=== PATIENT | female | born 1940 | race Caucasian/White ===

== ENCOUNTER 2017-01-31 01:38 | Observation (INO) ==
--- NOTE | 2017-01-31 00:39 | Internal Med History&Physical ---
Date of Encounter: 01/31/17 Time of Encounter: 00:37 Assessment and Plan (1) Atrial fibrillation with RVR Current visit: No Status: Acute trial PO cardizem 30mg QID- hold for HR< 60 (has hx of low HR), continue xarelto , monitor overnight, ambulate and if symptoms better, may return home, OOB, ambulate, orthostats while on meds to avoid hypotension/falls (2) History of hypertension Current visit: No Status: Chronic monitor on rate agent. ACEI with holding parameters if BP low (3) Anxiety Current visit: No Status: Chronic Chronic problem. continue med Internal Medicine - H&P: HPI Chief complaint: Palpitations History of present illness: Ms. Ireland is a 76 year old female with a hx of AFib on xarelto who symptoms with symptomatic AFib rvr today. She developed palpitations today and called her PCP and was advised to take extra cardizem pills x 2 but with persistent rvr. She presented to the local ED where she was given 6 adenosine and 8 mg IV cardizem with rate control in 60s. She did not wish to be admitted to his local hospital and requested transfer to [place] for observation. No worsening or improving factors noted on review. She has a hx of low HR and therefore is on prn dilt Past Med Surg Social Fam HX - Past Medical History Medical history: atrial fibrillation, coronary artery disease Psychiatric history: anxiety - Past Surgical History Surgical History: appendectomy, coronary bypass (CABG), knee replacement, thyroidectomy - Social History Smoking Status: Never smoker Smokeless Tobacco Status: No Alcohol use: none Drug use: none - Family History Mother Living Status: Hx Family Cardiac Disorders: No Hx Family Respiratory Disorders: No Hx Family Cancer: Yes (BREAST) Hx Family GI Disorders: No Hx Family Endocrine Disorder: No Hx Family Neuromuscular Disorders: No Hx Family Neurologic Disorders: No Hx Family HEENT Disorders: No Hx Family Autoimmune Disorders: No Father Living Status: Hx Family Cardiac Disorders: Yes Hx Family Respiratory Disorders: No Hx Family Cancer: No Hx Family GI Disorders: No Hx Family Endocrine Disorder: No Hx Family Neuromuscular Disorders: No Hx Family Neurologic Disorders: No Hx Family HEENT Disorders: No Hx Family Autoimmune Disorders: No Internal Medicine - H&P: Meds ALPRAZolam [Xanax 0.5 MG Tablet] 0.25 mg PO HS 07/14/15 [History] Lisinopril [Zestril] 20 mg PO QAM 07/14/15 [History] Nitroglycerin [Nitrostat] 0.4 mg SL AD PRN 07/14/15 [History] Pantoprazole Sodium [Protonix] 40 mg PO QAM 07/14/15 [History] Rivaroxaban [Xarelto] 20 mg PO QPM 07/14/15 [History] Cholecalciferol (D-3) [Vitamin D] 1,000 unit PO DAILY 11/07/16 [History] Diltiazem [Cardizem] 30 mg PO AD PRN 01/30/17 [History] Allergies doxycycline Adverse Reaction (Verified 11/07/16 17:51) See Comments bloody stools All Systems PM: A 10-system review of systems was performed and is negative for pertinent findings except as documented above in the HPI. Review of systems: ROS 14 point review of systems reviewed as best as possible given presentation. Pertinent positive or negative as per HPI or otherwise reviewed as negative - Constitutional Exam: General - AAO x 3 Psych - Appropriate affect/speech. No agitation Eyes - DEVANTE. Eye lids intact. No scleral icterus ENT - Oral mucosa pink, dentition intact. External ear clear/dry/intact. No thyromegaly Lymphatics - No cervical/inguinal lympadenopathy Neuro - No gross peripheral or central neuro deficits with intact CN 2-12 exam Heart - Irregular. S1 and S2 present. No added HS/murmurs appreciated. No elevated JVD appreciated. No calf swellings/erythema Lung - Adequate air entry b/l, No crackes/wheezes appreciated GI - Soft, non-tender. No hepatosplenomegaly/ascities. BS+ - No CVA/suprapubic tenderness or palpable bladder distension Skin - Intact. No rash/petechiae/ecchymosis. Warm extremities MSK - Joints with normal ROM. No joint swellings - VTE Reasons for not Prescribing Prophylaxis: Not indicated-Anticoagulated or INR therapeutic
[~2017-01-31 01:38] MED LIST: Acetaminophen 325 MG TABLET PO PRN
[2017-01-31 04:11] LABS: Basophils # 0.1 K/mcL (0.0-0.2); Basophils % 0.9 %; Eosinophils # 0.2 K/mcL (0.0-0.6); Eosinophils % 2.6 %; Hemoglobin 10.5 g/dL (11.5-15.4); Immature Granulocytes % 0.4 % (0-4); Lymphocytes # 2.4 K/mcL (0.6-4.6); Mean Corpuscular Hemoglobin 25.2 pg (28.0-33.3); Mean Corpuscular Volume 83.9 fL (83.0-100.0); Monocytes # 0.4 K/mcL (0.0-1.3); Monocytes % 7.7 %; Neutrophils # 2.7 K/mcL (1.6-8.9); Platelet Count 337 K/mcL (140-400); Red Blood Count 4.17 M/mcL (3.82-4.97); Red Cell Distribution Width 15.9 % (11.5-14.5); Segmented Neutrophils % 46.4 %
[2017-01-31 04:21] LABS: BUN/Creatinine Ratio 13 (6-26); Blood Urea Nitrogen 10 mg/dL (7-20); Carbon Dioxide 27 mEq/L (19-29); Chloride 108 mEq/L (98-109); Glucose 96 mg/dL (70-99); Magnesium 2.1 mg/dL (1.6-2.6); Osmolality,Calculated 291 (280-300); Potassium 4.1 mEq/L (3.5-4.5); Sodium 141 mEq/L (136-145); eGFR For African Americans > 60 (> 60); eGFR For Non-African Americans > 60 (> 60)
--- NOTE | 2017-01-31 08:46 | Cardiology Consult Note ---
Date of Encounter: 01/31/17 Time of Encounter: 08:45 Assessment and Plan (1) Atrial fibrillation with RVR Current Visit: No Status: Acute Appears that cardizem CD was ordered for her today at 0900. Monitor during the day to make sure her HR tolerates it. Discussed antiarrhythmic options including their side effects and need for hospitalization monitoring. A/R/B of sotalol and amiodarone discussed. She does not want to remain in the hospital and prefers to start amiodarone understanding the possible side effects. Continue xarelto for chronic anticoagulation. (2) Palpitations Current Visit: No Status: Acute Discussion w patient/family: The assessment and plan as outlined above was discussed with the patient and/or family members who expressed understanding and agreement. All questions were answered. Thank you for involving us in the care of your patient. Please call with any questions. History of Present Illness Consult date: 01/31/17 Consult reason: AF RVR History of present illness: Ms. Ireland is a 76 year old female with history of AF RVR maintained on xarelto and cardizem prn secondary to history of bradycardia presenting with AF RVR improved with IV adenosine and IV cardizem. She had severe palpitations yesterday that were not improved with cardizem. They started at rest and persisted until receiving IV meds in the ED. No previous discussion regarding antiarrhythmics. She thinks she was on metoprolol a long time ago but does not recall the specifics. Past Med Surg Social Fam HX - Past Medical History Medical history: atrial fibrillation, coronary artery disease Psychiatric history: anxiety - Past Surgical History Surgical History: appendectomy, coronary bypass (CABG), knee replacement, thyroidectomy - Social History Smoking Status: Never smoker Smokeless Tobacco Status: No Alcohol use: none Drug use: none - Family History Mother Living Status: Hx Family Cardiac Disorders: No Hx Family Respiratory Disorders: No Hx Family Cancer: Yes (BREAST) Hx Family GI Disorders: No Hx Family Endocrine Disorder: No Hx Family Neuromuscular Disorders: No Hx Family Neurologic Disorders: No Hx Family HEENT Disorders: No Hx Family Autoimmune Disorders: No Father Living Status: Hx Family Cardiac Disorders: Yes Hx Family Respiratory Disorders: No Hx Family Cancer: No Hx Family GI Disorders: No Hx Family Endocrine Disorder: No Hx Family Neuromuscular Disorders: No Hx Family Neurologic Disorders: No Hx Family HEENT Disorders: No Hx Family Autoimmune Disorders: No Medications and Allergies ALPRAZolam [Xanax 0.5 MG Tablet] 0.25 mg PO HS 07/14/15 [History] Lisinopril [Zestril] 20 mg PO QAM 07/14/15 [History] Nitroglycerin [Nitrostat] 0.4 mg SL AD PRN 07/14/15 [History] Pantoprazole Sodium [Protonix] 40 mg PO QAM 07/14/15 [History] Rivaroxaban [Xarelto] 20 mg PO QPM 07/14/15 [History] Cholecalciferol (D-3) [Vitamin D] 1,000 unit PO DAILY 11/07/16 [History] Diltiazem [Cardizem] 30 mg PO AD PRN 01/30/17 [History] Allergies doxycycline Adverse Reaction (Verified 11/07/16 17:51) See Comments bloody stools All Systems Review: A 10-system review of systems was performed and is negative for pertinent findings except as documented above in the HPI. - Constitutional Constitutional: no chills, no fever(s) - EENT Eyes: no blurred vision, no loss of vision - Cardiovascular Cardiovascular: no chest pain at rest, no chest pain with exertion - Respiratory Respiratory: no hemoptysis, no wheezing - Gastrointestinal Gastrointestinal: no hematemesis, no hematochezia - Genitourinary Genitourinary: no dysuria, no hematuria - Musculoskeletal Musculoskeletal: no arthralgias, no myalgias - Integumentary Integumentary: no rash, no unusual bruising - Neurological Neurological: no focal weakness, no syncope - Psychiatric Psychiatric: no anxiety, no depression - Hematological/Lymphatic Hematologic/Lymphatic: no easy bleeding, no easy bruising Physical Examination Vital Signs, Last 4 Hours Temp Pulse Resp BP Pulse Ox 01/31/17 07:07 97.9 F 59 16 123/77 96 General: Conversant HEENT: Atraumatic Neck: No JVD Cardiac: Reg Rate and Rhythm Lungs: Normal Breath Sounds Neuro: Alert and responsive Abdomen: Soft Skin: No rashes noted on visualized skin Musculoskeletal: No Chest Wall Tenderness Extremities: No Edema Results 01/31/17 03:44 01/31/17 03:44 Lab Results 01/31/17 01/31/17 03:44 03:44 WBC 5.7 Hgb 10.5 L Hct 35.0 L Plt Count 337 Sodium 141 Potassium 4.1 Chloride 108 Carbon Dioxide 27 BUN 10 Creatinine 0.77 Glucose 96 Calcium 9.0 Magnesium 2.1 - EKG Interpretation EKG results cardiology: personally reviewed Consult Discharge Plan - Plan Referrals: Yovani Ruiz DO [Primary Care Provider] -
[2017-01-31] MEDS ORDERED: Cholecalciferol (D-3) 1,000 UNIT TABLET PO SCH (09:00)
[2017-01-31] MEDS ORDERED: Diltiazem CD (24hr) 120 MG CAPSULE PO SCH (09:00)
[2017-01-31] MEDS ORDERED: Lisinopril 20 MG TABLET PO SCH (10:00)
[2017-01-31 11:19] VITALS: BP 153/79
[2017-01-31] MEDS ORDERED: *HR* Amiodarone 200 MG TABLET PO ONE (11:37)
[2017-01-31] MEDS ORDERED: *HR* Digoxin 0.5 MG/2 ML AMPUL IVP SCH (12:00)
--- NOTE | 2017-01-31 14:38 | Event Note ---
Date of Encounter: 01/31/17 Time of Encounter: 14:00 A review by [facility] and a member of the utilization review committee has been completed, and I (Dr. Fuller) agree that the status is to be changed to observation using a condition code 44.
--- NOTE | 2017-01-31 15:31 | Discharge Summary ---
Date of Encounter: 01/31/17 Time of Encounter: 10:00 - Discharge Diagnosis (1) Atrial fibrillation with RVR Priority: Primary Status: Acute (2) History of hypertension Priority: Secondary Status: Chronic (3) DVT prophylaxis Priority: Secondary Status: Acute - Discharge Medications Prescriptions: Amiodarone [Cordarone] 200 mg PO DAILY #30 tab Home Medications: ALPRAZolam [Xanax 0.5 MG Tablet] 0.25 mg PO HS 07/14/15 [History] Lisinopril [Zestril] 20 mg PO QAM 07/14/15 [History] Nitroglycerin [Nitrostat] 0.4 mg SL AD PRN 07/14/15 [History] Pantoprazole Sodium [Protonix] 40 mg PO QAM 07/14/15 [History] Rivaroxaban [Xarelto] 20 mg PO QPM 07/14/15 [History] Cholecalciferol (D-3) [Vitamin D] 1,000 unit PO DAILY 11/07/16 [History] Diltiazem [Cardizem] 30 mg PO AD PRN 01/30/17 [History] Amiodarone [Cordarone] 200 mg PO DAILY #30 tab 01/31/17 [Rx] Allergies/Adverse Reactions: Allergies doxycycline Adverse Reaction (Verified 11/07/16 17:51) See Comments bloody stools Procedures/tests Complete & Pending: Procedures Performed prior 72 hours Category Date Time Status ECG 12 lead ECG [ECG] AM 0600 Y 01/31/17 06:00 Ordered - Notes to Outpatient Provider 1. Add amiodarone 200mg po daily to pt's medication list per cardiology recommendation. Date of admission: 01/31/17 00:43 Primary care physician: Yovani Ruiz DO Discharging clinician: Hallie Fuller Anticipated date of discharge: 01/31/17 - Patient Status Disposition: Home, Self-Care Condition: Good Functional capacity at discharge: independent ambulation Overall status at discharge: patient is back to baseline - Discharge Instructions Follow Up With: Yovani Ruiz DO [Primary Care Provider] - - Diet and Activity Activity: increase activity as tolerated Diet: low salt diet Interval History: HPI: Ms. Ireland is a 76 year old female with a hx of AFib on xarelto who symptoms with symptomatic AFib rvr today. She developed palpitations today and called her PCP and was advised to take extra cardizem pills x 2 but with persistent rvr. She presented to the local ED where she was given 6 adenosine and 8 mg IV cardizem with rate control in 60s. She did not wish to be admitted to his local hospital and requested transfer to [place] for observation. No worsening or improving factors noted on review. She has a hx of low HR and therefore is on prn dilt Hospital course: Ms. Ireland is a 76 year old female admitted with A Fib with RVR. Pt has Hx of A Fib on xarelto. The specific reason causing RVR is not clear, pt denies recent infection or stress. Her HR get down to 60s after cardizem drip use. Cardio consult saw pt, add amiodarone to her med list. Pt feels fine after taking first dose of amiodarone. Vitals stable. Pt will discharge home and f/u with her dice table operator Dr Muir as outpatient. I saw pt today and examined her. She is awake, alert, oriented x 3. Vitals stable. Stable to discharge home. - Time Spent with Patient Total time spent providing and/or coordinating discharge services: 25 min. Less than 30 minutes - Constitutional Vitals: Temp Pulse Resp BP Pulse Ox 98.2 F 56 16 153/79 98 01/31/17 11:17 01/31/17 11:17 01/31/17 11:17 01/31/17 11:17 01/31/17 11:17 General appearance: Present: A&O X 3, pleasant, no acute distress, answers questions appropriately - Head Head exam: Present: atraumatic, normocephalic - Eye Eye exam: Present: PERRL, conjuntiva pink, sclera anicteric Pupils: Present: PERRL - Neck Neck exam general surgery: Present: supple, trachea midline. Absent: lymphadenopathy - Respiratory Respiratory exam: Present: CTAB. Absent: accessory muscle use, rales, rhonchi, wheezes - Cardiovascular Cardiovascular exam: Present: irregular rhythm, +S1, +S2. Absent: diastolic murmur, gallop, rubs, systolic murmur - GI/Abdominal GI/Abdominal exam: Present: normal bowel sounds, soft, no peritoneal signs. Absent: distended, tenderness - Extremities Exam Extremities exam: Present: warm, radial pulses palpable and symetrical. Absent : calf tenderness, cyanotic, pedal edema - Neurological Exam Neurological exam: Present: CN II-XII intact, oriented X3, no focal deficits. Absent: pronater drift, facial droop, speech deficit - Skin Skin exam: Present: dry, intact - VTE Reasons for not Prescribing Prophylaxis: Not indicated-Anticoagulated or INR therapeutic
[2017-01-31] MEDS ORDERED: *HR* Rivaroxaban 10 MG TABLET PO SCH (18:00)
[2017-01-31] MEDS ORDERED: ALPRAZolam 0.5 MG TABLET PO SCH (21:00)
[2017-02-01] MEDS ORDERED: *HR* Amiodarone 200 MG TABLET PO SCH (09:00)
== END 2017-01-31 16:30 | disposition home or self-care (01) ==
LOC: 3BNU → SUATTDRO 01:38
PROVIDERS: ADMIT Internal Medicine Hematology & Oncology; ATTEND Internal Medicine

== ENCOUNTER 2017-09-25 18:46 | Observation (INO) ==
[2017-09-25] MEDS ORDERED: Aspirin 81 MG TAB.CHEW PO ONE (18:52)
[2017-09-25 19:32] LABS: Bilirubin,Urine Negative (Negative); Blood,Urine Trace (Negative); Clarity,Urine Clear (Clear); Color,Urine Yellow (Yellow); Glucose,Urine (UA) Normal (Normal); Ketones,Urine Negative (Negative); Leukocyte Esterase,Urine Negative (Negative); Nitrite,Urine Negative (Negative); Protein,Urine 30 mg/dL (Neg-Trace); Specific Gravity,Urine 1.019 (1.010-1.025); Urobilinogen,Urine Normal (Normal)
--- NOTE | 2017-09-25 19:35 | Emergency Department Note ---
Disposition Clinical Impression: Atrial fibrillation with RVR, Elevated troponin Chest pain Qualifiers: Chest pain type: unspecified Qualified Code(s): R07.9 - Chest pain, unspecified Disposition: Admitted As Inpatient Condition: Good Time of Disposition: 21:55 Chest Pain HPI - General Chief Complaint: ED Chest Pain Stated Complaint: Chest pain Time Seen by Provider: 09/25/17 18:52 Source: patient, family Limitations: no limitations Vital Signs Reviewed: Yes Nursing Notes Reviewed: Yes - History of Present Illness HPI Narrative: Patient complaining of a fast heart rate that began around 5 PM this evening. Also chest pain associated with this. States it radiates to her back. Complains it is an ache. Has not taken any medication to help with the pain did try Cardizem twice at home by mouth to help with her A. fib. No relief. Onset was after she picked up a bucket of water. Severity scale (1-10): 7 - Related Data Home Medications Medication Instructions Recorded Confirmed ALPRAZolam [Xanax 0.5 MG Tablet] 0.25 mg PO HS 07/14/15 09/25/17 Lisinopril [Zestril] 20 mg PO QAM 07/14/15 09/25/17 Nitroglycerin [Nitrostat] 0.4 mg SL AD PRN 07/14/15 09/25/17 Pantoprazole Sodium [Protonix] 40 mg PO QAM 07/14/15 09/25/17 Rivaroxaban [Xarelto] 20 mg PO QPM 07/14/15 09/25/17 Cholecalciferol (D-3) [Vitamin D] 1,000 unit PO DAILY 11/07/16 09/25/17 Diltiazem [Cardizem] 30 mg PO AD PRN 01/30/17 09/25/17 Allergies Allergy/AdvReac Type Severity Reaction Status Date / Time doxycycline AdvReac See Verified 11/07/16 17:51 Comments All systems ED: reviewed and negative except as stated. Constitutional: Denies: fever, chills ENT ED: Denies: congestion Cardiovascular: Reports: chest pain, palpitations (Feels like her heart is racing). Denies: syncope Respiratory: Denies: cough, dyspnea, wheezes Gastrointestinal: Denies: abdominal pain, nausea, vomiting, diarrhea, hematemesis, melena, hematochezia Genitourinary: Denies: urgency, dysuria, frequency Musculoskeletal: Reports: back pain (Radiates from her chest). Denies: neck pain Neurological: Denies: headache, weakness Chest Pain PMH - Past Medical History Medical history: Reports: atrial fibrillation, coronary artery disease, hyperlipidemia, hypertension Surgical history: Reports: appendectomy, coronary bypass (CABG), knee replacement, thyroidectomy Psychiatric history: Reports: anxiety COLLARETTE SEPARATOR history: Reports: no COLLARETTE SEPARATOR history - Social History Smoking Status: Never smoker Alcohol use: Reports: none Drug use: Reports: none Physical Exam - General Limitations: no limitations General appearance: alert, in distress (Appears to be in pain) - Head Head exam: atraumatic, normocephalic, normal inspection - Eye Eye exam: Present: normal appearance, PERRL, EOMI. Absent: scleral icterus - ENT ENT exam: normal exam, normal oropharynx, mucous membranes moist - Neck Neck exam: Present: normal inspection, full ROM, trachea midline - Chest Chest inspection: Present: normal inspection, symmetric chest wall rise. Absent : tenderness - Respiratory Respiratory exam: Present: normal lung sounds bilaterally. Absent: respiratory distress - Cardiovascular Cardiovascular exam: Present: tachycardia, normal heart sounds - Abdominal Exam Abdominal exam: Present: soft, Non-Tender. Absent: distention, rigidity, organomegaly - Extremities Exam Extremities exam: Present: normal inspection, full ROM, normal capillary refill. Absent: tenderness, pedal edema - Back Exam Back exam: Present: normal inspection - Neurological Exam Neurological exam: Present: alert, oriented X3 - Psychiatric Psychiatric exam: Present: normal affect, normal mood - Skin Skin exam: Present: warm, dry, intact, normal color. Absent: rash, cyanosis, diaphoresis, erythema Course Course Narrative: Female patient presents emergency department complaining of an irregular heartbeat. States that started around 5 PM today. Patient states that she has had a history of A. fib before. She did try Cardizem pills twice as prescribed by her commercial maintenance technician yvan with no relief of this. She states that she was bending over and picked up a bucket of water whenever she came back to the house she noticed that her heart was racing. Last episode started in March. She reports a chest aching as well as pain in her back and neck. She reports that her heart rate is normally low and she does have a echo scheduled on October 07. She states that she was previously placed on a medication which appears to be a beta mauricio but taken off this due to her slow heart rate. Patient is mentating appropriately. She does appear to have pain at this time. Her lung sounds are clear her heart is tachycardic on exam. Abdomen is soft and nontender. She denies any nausea or vomiting. She refuses pain medication for pain at this time. She has pain radiating into her back we will get a CT angiography patient's chest and abdomen. Cardizem was ordered however was not given because patient converted prior to the administration of the bolus or the starting of the IV drip. Patient states that she does feel like her heart is back and rhythm. We did get a repeat EKG that showed a sinus rhythm consistent with her previous EKG. We will admit patient to the hospitalist. - Consultations Consultation #1: Dr. Graham accepted patient in stable condition. Time: 21:52 Vital Signs Temperature 98.8 F 09/25/17 18:48 Pulse Rate 157 09/25/17 18:48 Respiratory Rate 18 09/25/17 18:48 Blood Pressure 153/96 09/25/17 18:48 O2 Sat by Pulse Oximetry 93 09/25/17 18:48 Temperature 97.7 F 09/26/17 03:00 Pulse Rate 57 09/26/17 03:00 Respiratory Rate 16 09/26/17 03:00 Blood Pressure 152/75 09/26/17 03:00 O2 Sat by Pulse Oximetry 97 09/26/17 03:00 Oxygen Delivery Oxygen Delivery Room Air Chest Pain - Medical Records Medical records reviewed: Yes I reviewed the patient's medical records. - Lab Data Lab results reviewed: Yes I reviewed the patient's lab results. Result diagrams: 09/26/17 04:52 09/25/17 19:38 Lab Results 09/25/17 09/25/17 09/25/17 Range/Units 19:22 19:38 19:38 WBC (4.3-11.1) K/mcL RBC (3.82-4.97) M/mcL Hgb (11.5-15.4) g/dL Hct (35.3-44.9) % MCV (83.0-100.0) fL MCH (28.0-33.3) pg MCHC (31.6-35.5) g/dL RDW (11.5-14.5) % Plt Count (140-400) K/mcL MPV (9.4-12.4) fL Immature Gran % (0-4) % Seg Neutrophils % % Lymphocytes % % Monocytes % % Eosinophils % % Basophils % % Neutrophils # (1.6-8.9) K/mcL Lymphocytes # (0.6-4.6) K/mcL Monocytes # (0.0-1.3) K/mcL Eosinophils # (0.0-0.6) K/mcL Basophils # (0.0-0.2) K/mcL PT 11.5 (9.4-12.1) Seconds INR 1.1 APTT 33.3 (26.0-36.0) Seconds Sodium (136-145) mEq/L Potassium (3.5-5.1) mEq/L Chloride (98-107) mEq/L Carbon Dioxide (23-29) mEq/L BUN (8-23) mg/dL Creatinine (0.60-1.20) mg/dL Est GFR ( Amer) (> 60) Est GFR (Non-Af Amer) (> 60) BUN/Creatinine Ratio (6-26) Glucose (70-105) mg/dL Calculated Osmolality (280-300) Calcium (8.6-10.3) mg/dL Troponin I (< 0.04) ng/mL B-Natriuretic Peptide 307 H (Less than 100) pg/mL Urine Color Yellow (Yellow) Urine Clarity Clear (Clear) Urine pH 6.0 (5.0-8.0) pH Units Ur Specific [place] 1.019 (1.010-1.025) Urine Protein 30 H (Neg-Trace) mg/dL Urine Glucose (UA) Normal (Normal) mg/dL Urine Ketones Negative (Negative) mg/dL Urine Blood Trace H (Negative) Urine Nitrite Negative (Negative) Urine Bilirubin Negative (Negative) Urine Urobilinogen Normal (Normal) mg/dL Ur Leukocyte Esterase Negative (Negative) Urine Microscopic RBC 0-3 (0-3) per hpf Urine Microscopic WBC 0-3 (0-3) per hpf Ur Squamous Epith Cells Few (None-Few) per lpf Urine Bacteria None Seen (None-Few) per hpf Hyaline Casts None Seen (None-Few) per lpf Ur Culture Indicated? NO (NO) 09/25/17 09/25/17 Range/Units 19:38 19:38 WBC 7.5 (4.3-11.1) K/mcL RBC 4.37 (3.82-4.97) M/mcL Hgb 13.0 (11.5-15.4) g/dL Hct 39.7 (35.3-44.9) % MCV 90.8 (83.0-100.0) fL MCH 29.7 (28.0-33.3) pg MCHC 32.7 (31.6-35.5) g/dL RDW 14.1 (11.5-14.5) % Plt Count 292 (140-400) K/mcL MPV 8.9 L (9.4-12.4) fL Immature Gran % 0.3 (0-4) % Seg Neutrophils % 57.3 % Lymphocytes % 34.3 % Monocytes % 5.6 % Eosinophils % 1.6 % Basophils % 0.9 % Neutrophils # 4.3 (1.6-8.9) K/mcL Lymphocytes # 2.6 (0.6-4.6) K/mcL Monocytes # 0.4 (0.0-1.3) K/mcL Eosinophils # 0.1 (0.0-0.6) K/mcL Basophils # 0.1 (0.0-0.2) K/mcL PT (9.4-12.1) Seconds INR APTT (26.0-36.0) Seconds Sodium 140 (136-145) mEq/L Potassium 3.9 (3.5-5.1) mEq/L Chloride 109 H (98-107) mEq/L Carbon Dioxide 22 L (23-29) mEq/L BUN 18 (8-23) mg/dL Creatinine 0.84 (0.60-1.20) mg/dL Est GFR ( Amer) > 60 (> 60) Est GFR (Non-Af Amer) > 60 (> 60) BUN/Creatinine Ratio 21 (6-26) Glucose 114 H (70-105) mg/dL Calculated Osmolality 293 (280-300) Calcium 9.4 (8.6-10.3) mg/dL Troponin I 0.05 H* (< 0.04) ng/mL B-Natriuretic Peptide (Less than 100) pg/mL Urine Color (Yellow) Urine Clarity (Clear) Urine pH (5.0-8.0) pH Units Ur Specific [place] (1.010-1.025) Urine Protein (Neg-Trace) mg/dL Urine Glucose (UA) (Normal) mg/dL Urine Ketones (Negative) mg/dL Urine Blood (Negative) Urine Nitrite (Negative) Urine Bilirubin (Negative) Urine Urobilinogen (Normal) mg/dL Ur Leukocyte Esterase (Negative) Urine Microscopic RBC (0-3) per hpf Urine Microscopic WBC (0-3) per hpf Ur Squamous Epith Cells (None-Few) per lpf Urine Bacteria (None-Few) per hpf Hyaline Casts (None-Few) per lpf Ur Culture Indicated? (NO) - Radiology Data Radiology results reviewed: Yes I reviewed the patient's radiology results. Chest X-Ray 09/25/17 18:52 IMPRESSION: No acute findings D/ / Emiliana Alvares MD / Emiliana Alvares MD Interpreting Provider: Emiliana Alvares MD Abdomen/Pelvis CTA 09/25/17 19:41 IMPRESSION: No evidence of dissection. Ascending thoracic aortic aneurysm measuring up to 3.6 cm. No acute findings in the chest, abdomen, or pelvis. Diverticulosis. No evidence of acute diverticulitis. D/ / Emiliana Alvares MD / Emiliana Alvares MD Interpreting Provider: Emiliana Alvares MD Chest CTA 09/25/17 19:41 IMPRESSION: No evidence of dissection. Ascending thoracic aortic aneurysm measuring up to 3.6 cm. No acute findings in the chest, abdomen, or pelvis. Diverticulosis. No evidence of acute diverticulitis. D/ / Emiliana Alvares MD / Emiliana Alvares MD Interpreting Provider: Emiliana Alvares MD - EKG Data EKG attestation: Yes I reviewed and interpreted this EKG. EKG results narrative: A. fib with RVR at a rate of 154. QRS interval is 119. QT is 300 QTC is 387. There is no significant change from the previous EKG with the exception of V5 has a upward deflection as opposed to previously there is a downward deflection. There is some gross T-wave inversions. Repeat EKG 09/25/2036. Sinus rhythm at a rate of 67. VT interval is 154. QRS duration is 135. QT is 462. QTC is 477. Left bundle branch block. This was on previous EKG dated 01/30/2017. No significant change. With the exception of V5 is now upward deflection. No signs of acute ischemia. Attestation Statement - Attestation Attestation: I examined this patient and my medical decision-making was reviewed with the Resident Physician. I agree with the documented findings, disposition and treatment plan as described except to the extent set forth below. Patient with findings consistent with A. fib with RVR. She has any coagulate with several toe. She has of a history of A. fib. Heart rate in the 150s on arrival. He did order Cardizem bolus and infusion. She subsequently converted to sinus rhythm without are intervention as she did take by mouth Cardizem prior to arrival. Plan to admit for further evaluation and cardiology consultation.
[2017-09-25 19:36] LABS: Bacteria,Urine None Seen per hpf (None-Few); Hyaline Casts,Urine None Seen per lpf (None-Few); RBC,Urine 0-3 per hpf (0-3); Squamous Epithelial Cell,Urine Few per lpf (None-Few); WBC,Urine 0-3 per hpf (0-3)
[2017-09-25] MEDS ORDERED: 0.9 % Sodium Chloride 500 ML IVC ONE (19:37)
[2017-09-25 19:53] LABS: Basophils # 0.1 K/mcL (0.0-0.2); Basophils % 0.9 %; Eosinophils # 0.1 K/mcL (0.0-0.6); Eosinophils % 1.6 %; Hematocrit 39.7 % (35.3-44.9); Immature Granulocytes % 0.3 % (0-4); Lymphocytes # 2.6 K/mcL (0.6-4.6); Lymphocytes % 34.3 %; Mean Corpuscular HGB Conc 32.7 g/dL (31.6-35.5); Mean Corpuscular Hemoglobin 29.7 pg (28.0-33.3); Mean Corpuscular Volume 90.8 fL (83.0-100.0); Mean Platelet Volume 8.9 fL (9.4-12.4); Monocytes # 0.4 K/mcL (0.0-1.3); Monocytes % 5.6 %; Neutrophils # 4.3 K/mcL (1.6-8.9); Platelet Count 292 K/mcL (140-400); Red Blood Count 4.37 M/mcL (3.82-4.97); Red Cell Distribution Width 14.1 % (11.5-14.5); Segmented Neutrophils % 57.3 %
[2017-09-25 19:59] LABS: INR 1.1; Prothrombin Time 11.5 Seconds (9.4-12.1)
[2017-09-25 20:01] LABS: Activated Partial Thrombo Time 33.3 Seconds (26.0-36.0)
[2017-09-25 20:16] LABS: BUN/Creatinine Ratio 21 (6-26); Blood Urea Nitrogen 18 mg/dL (8-23); Calcium 9.4 mg/dL (8.6-10.3); Carbon Dioxide 22 mEq/L (23-29); Chloride 109 mEq/L (98-107); Glucose 114 mg/dL (70-105); Osmolality,Calculated 293 (280-300); Potassium 3.9 mEq/L (3.5-5.1); Sodium 140 mEq/L (136-145); eGFR For African Americans > 60 (> 60); eGFR For Non-African Americans > 60 (> 60)
[2017-09-25 20:19] LABS: Troponin I 0.05 ng/mL (< 0.04)
[2017-09-25] MEDS ORDERED: Naloxone 0.4 MG/ML INJ IVP PRN ×2 (22:34→22:36)
[2017-09-25] MEDS ORDERED: traMADol 50 MG TABLET PO PRN (22:36)
[2017-09-25] MEDS ORDERED: Acetaminophen 325 MG TABLET PO PRN (22:36)
[2017-09-25] MEDS ORDERED: Nitroglycerin 0.4 MG TAB.SUBL SL PRN (22:37)
--- NOTE | 2017-09-25 22:52 | Internal Med History&Physical ---
Date of Encounter: 09/25/17 Time of Encounter: 22:48 Assessment and Plan (1) Atrial fibrillation with RVR Current visit: Yes Status: Acute Patient when arrived to emergency room with a atrial fibrillation converted on her own remains in sinus rhythm with an Lopressor 25 mg twice a day cartilages consult and (2) Chest pain Current visit: Yes Status: Acute Qualifiers: Chest pain type: unspecified Qualified Code(s): R07.9 - Chest pain, unspecified (3) Elevated troponin Current visit: Yes Status: Acute Patient had episode of chest pain with mildly elevated troponin likely due to atrial fibrillation with RVR will trend troponin (4) History of hypertension Current visit: No Status: Chronic Chronic and well controlled Internal Medicine - H&P: HPI Chief complaint: chest pain and atrial fib Admitted From: Emergency Dept Plans for Post Hospital Care: Home History of present illness: Ms. Ireland is a 76 year old female Patient with history of paroxysmal atrial fibrillation, CAD had a history of mitral valve replacement and two-vessel CABG about 14 years ago, hypertension, patient followed by cardiology for paroxysmal fibrillation and given Cardizem by mouth to take when she has the episode. Patient has been doing well but this afternoon about 5 PM developed palpitation she took Cardizem 30 mg and then took another one but tachycardia persisted decided to come to the emergency room in the ER heart rate was 157 atrial fib was about to be started on Cardizem drip but she converted to sinus rhythm and now remains in sinus rhythm. Had episode of chest pain which resolved and remains chest pain-free troponin is mildly elevated CTA of the chest showed no pulmonary embolism but shows aortic aneurysm measured 3.6 cm. troponin mildly elevated 0.05 Past Med Surg Social Fam HX - Past Medical History Medical history: atrial fibrillation, coronary artery disease, hyperlipidemia, hypertension Psychiatric history: anxiety - Past Surgical History Surgical History: appendectomy, coronary bypass (CABG), knee replacement, thyroidectomy - Social History Smoking Status: Never smoker Smokeless Tobacco Status: No Alcohol use: none Drug use: none - Family History Mother Living Status: Hx Family Cardiac Disorders: No Hx Family Respiratory Disorders: No Hx Family Cancer: Yes (BREAST) Hx Family GI Disorders: No Hx Family Endocrine Disorder: No Hx Family Neuromuscular Disorders: No Hx Family Neurologic Disorders: No Hx Family HEENT Disorders: No Hx Family Autoimmune Disorders: No Father Living Status: Hx Family Cardiac Disorders: Yes Hx Family Respiratory Disorders: No Hx Family Cancer: No Hx Family GI Disorders: No Hx Family Endocrine Disorder: No Hx Family Neuromuscular Disorders: No Hx Family Neurologic Disorders: No Hx Family HEENT Disorders: No Hx Family Autoimmune Disorders: No Internal Medicine - H&P: Meds ALPRAZolam [Xanax 0.5 MG Tablet] 0.25 mg PO HS 07/14/15 [History] Lisinopril [Zestril] 20 mg PO QAM 07/14/15 [History] Nitroglycerin [Nitrostat] 0.4 mg SL AD PRN 07/14/15 [History] Pantoprazole Sodium [Protonix] 40 mg PO QAM 07/14/15 [History] Rivaroxaban [Xarelto] 20 mg PO QPM 07/14/15 [History] Cholecalciferol (D-3) [Vitamin D] 1,000 unit PO DAILY 11/07/16 [History] Diltiazem [Cardizem] 30 mg PO AD PRN 01/30/17 [History] 3 Allergy/AdvReac Type Severity Reaction Status Date / Time doxycycline AdvReac See Verified 11/07/16 17:51 Comments All Systems PM: A 10-system review of systems was performed and is negative for pertinent findings except as documented above in the HPI. - Constitutional Constitutional: no chills, no fever(s), no night sweats - EENT Eyes: no change in vision, no discharge, no pain, no photophobia Ears: no ear discharge, no ear pain, no tinnitus Nose, mouth and throat: no dysphagia, no nasal discharge, no neck pain, no sore throat - Cardiovascular Cardiovascular ROS IM: chest pain, irregular heart rhythm, palpitations - Respiratory Respiratory: no cough, no dyspnea, no wheezing, no excessive phlegm production - Gastrointestinal Gastrointestinal: no abdominal pain, no diarrhea, no hematemesis, no hematochezia, no melena, no nausea, no vomiting - Genitourinary Genitourinary: no change in urinary stream, no dysuria, no flank pain, no hematuria - Musculoskeletal Musculoskeletal ROS IM: no numbness, no tingling - Constitutional Vitals: Temp Pulse Resp BP Pulse Ox 98.8 F 64 18 147/87 96 09/25/17 18:48 09/25/17 22:00 09/25/17 18:48 09/25/17 22:00 09/25/17 22:00 - Head Head exam: Present: atraumatic, normocephalic - Eye Eye exam: Present: PERRL, conjuntiva pink, sclera anicteric Pupils: Present: PERRL - Neck Neck exam general surgery: Present: supple, trachea midline. Absent: lymphadenopathy - Respiratory Respiratory exam: Present: CTAB. Absent: accessory muscle use, rales, rhonchi, wheezes - Cardiovascular Cardiovascular exam: Present: RRR - GI/Abdominal GI/Abdominal exam: Present: normal bowel sounds, soft, no peritoneal signs. Absent: distended, tenderness Internal Med - H&P Results - Labs CBC & Chem 7: 09/25/17 19:38 09/25/17 19:38
[2017-09-25] MEDS: 0.9 % Sodium Chloride 1,000 ML IVC SCH (23:04)
[2017-09-25] MEDS: *HR* Rivaroxaban 10 MG TABLET PO SCH (23:53)
[2017-09-25] MEDS: ALPRAZolam 0.5 MG TABLET PO SCH (23:53)
[2017-09-26 05:56] LABS: Hematocrit 34.7 % (35.3-44.9); Mean Corpuscular Hemoglobin 29.3 pg (28.0-33.3); Mean Corpuscular Volume 91.6 fL (83.0-100.0); Mean Platelet Volume 9.3 fL (9.4-12.4); Platelet Count 259 K/mcL (140-400); Red Blood Count 3.79 M/mcL (3.82-4.97); Red Cell Distribution Width 14.4 % (11.5-14.5)
[2017-09-26 05:57] LABS: Hemoglobin 11.1 g/dL (11.5-15.4)
[2017-09-26 06:22] LABS: Alanine Aminotransferase 28 Units/L (7-52); Albumin 3.4 g/dL (3.5-5.7); Albumin/Globulin Ratio 1.4 (1.1-2.2); Alkaline Phosphatase 69 Units/L (34-104); Aspartate Amino Transferase 29 Units/L (13-39); BUN/Creatinine Ratio 22 (6-26); Bilirubin,Total 0.3 mg/dL (0.3-1.0); Blood Urea Nitrogen 15 mg/dL (8-23); Calcium 8.6 mg/dL (8.6-10.3); Carbon Dioxide 24 mEq/L (23-29); Chloride 111 mEq/L (98-107); Chol/HDL Ratio 4.5 (0-4.9); Cholesterol 213 mg/dL (< 200); Globulin 2.4 g/dL (2.4-3.5); Glucose 89 mg/dL (70-105); HDL Cholesterol 47 mg/dL (40-59); LDL Cholesterol,Calculated 141 mg/dL (0-99); Magnesium 1.9 mg/dL (1.6-2.6); Osmolality,Calculated 294 (280-300); Potassium 4.1 mEq/L (3.5-5.1); Sodium 142 mEq/L (136-145); Total Protein 5.8 g/dL (6.4-8.9); Triglycerides 126 mg/dL (< 150); eGFR For African Americans > 60 (> 60); eGFR For Non-African Americans > 60 (> 60)
[2017-09-26] MEDS: Lisinopril 20 MG TABLET PO SCH (09:36)
[2017-09-26] MEDS: Cholecalciferol (D-3) 1,000 UNIT TABLET PO SCH (09:36)
[2017-09-26] MEDS: 0.9 % Sodium Chloride 1,000 ML IVC SCH (12:53)
--- NOTE | 2017-09-26 15:10 | Cardiology Consult Note ---
Date of Encounter: 09/26/17 Time of Encounter: 13:30 Assessment and Plan (1) Atrial fibrillation with RVR Current Visit: Yes Status: Acute Per cardiology: -Known a.fib. -On xarelto for anticoagulation. -Not on dialy AV nico blockers due to bradycardia when in SR. -Attempted to take PRN cardizem at home without success. -Was a.fib RVR on admission. -Now SR, HR 50s. 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 (2) Elevated troponin Current Visit: Yes Status: Acute Per cardiology: -Troponins 0.05, 0.4, 0.71, 0.39 in the setting of a.fib with RVR> -Patient had one episode of chest pain while in a.fib RVR, resolved when she converted to SR. -ECG when in SR, unchanged from baseline. -08/2015 stress with no evidence of reversible ischemia. Prior infarct noted. -08/2015 TTE with LVEF 45-50%. -Do not suspect NSTEMI, suspect demand ischemia related to above. NO cardiac rehab consult warranted. -Will check TTE. Futher recommendations pending TTE. (3) CAD (coronary artery disease) Current Visit: Yes Status: Chronic Per cardiology: -Known history of CAD s/p 2 vessel CABG. -On asa. Not on beta mauricio due to bradycardia. -Of note, also had mitral valve repair at time of CABG. -Will start statin. -Will check TTE. Qualifiers: Coronary Disease-Associated Artery/Lesion type: [place] artery [place] vs. transplanted heart: [place] heart Associated angina: without angina Qualified Code(s): I25.10 - Atherosclerotic heart disease of [place] coronary artery without angina pectoris Discussion w patient/family: The assessment and plan as outlined above was discussed with the patient who expressed understanding and agreement. All questions were answered. Thank you for involving us in the care of your patient. Please call with any questions. Discussed and reviewed with . History of Present Illness Consult date: 09/23/17 Requesting physician: Anjelica Chen Consult reason: a.fib RVR, elevated troponin Chief complaint: a.fib History of present illness: Ms. Ireland is a 76 year old female with a relevant past medical history of PAF on xarelto for anticoagulation, CAD s/p CABG, mitral valve repair, HTN, hyperlipidemia. Patient states she presented to [facility] with complaints of being in a.fib. Patient reprots she knows when she is in a.fib becuase she feels palpitations/fluttering. Patient has PRN cardizem at home that she took, without improvement. Patient presented to ER. Patient also reports had some chest discomfort while in a.fib. Denies aggravating factors. Patient states pain was relieved when she converted back to SR. Denies exertional chest pain. Deneis current chest pain. Patient denies shortness of breath or fatigue. Past Med Surg Social Fam HX - Past Medical History Attestation: Yes The following information was validated with the patient. Source: patient, old records reviewed Medical history: atrial fibrillation, coronary artery disease, hyperlipidemia, hypertension Psychiatric history: anxiety - Past Surgical History Surgical History: appendectomy, coronary bypass (CABG), knee replacement, thyroidectomy - Social History Smoking Status: Never smoker Smokeless Tobacco Status: No Alcohol use: none Drug use: none - Family History Mother Living Status: Hx Family Cardiac Disorders: No Hx Family Respiratory Disorders: No Hx Family Cancer: Yes (BREAST) Hx Family GI Disorders: No Hx Family Endocrine Disorder: No Hx Family Neuromuscular Disorders: No Hx Family Neurologic Disorders: No Hx Family HEENT Disorders: No Hx Family Autoimmune Disorders: No Father Living Status: Hx Family Cardiac Disorders: Yes Hx Family Respiratory Disorders: No Hx Family Cancer: No Hx Family GI Disorders: No Hx Family Endocrine Disorder: No Hx Family Neuromuscular Disorders: No Hx Family Neurologic Disorders: No Hx Family HEENT Disorders: No Hx Family Autoimmune Disorders: No Medications and Allergies ALPRAZolam [Xanax 0.5 MG Tablet] 0.25 mg PO HS 07/14/15 [History] Lisinopril [Zestril] 20 mg PO QAM 07/14/15 [History] Nitroglycerin [Nitrostat] 0.4 mg SL AD PRN 07/14/15 [History] Pantoprazole Sodium [Protonix] 40 mg PO QAM 07/14/15 [History] Rivaroxaban [Xarelto] 20 mg PO QPM 07/14/15 [History] Cholecalciferol (D-3) [Vitamin D] 1,000 unit PO DAILY 11/07/16 [History] Diltiazem [Cardizem] 30 mg PO AD PRN 01/30/17 [History] 3 Allergy/AdvReac Type Severity Reaction Status Date / Time doxycycline AdvReac See Verified 11/07/16 17:51 Comments All Systems Review: The remainder of the systems were reviewed and are negative - Cardiovascular Cardiovascular: as per HPI, chest pain at rest, palpitations, rapid heart rate Physical Examination Vital Signs, Last 4 Hours Temp Pulse Resp BP Pulse Ox 09/26/17 11:10 97.9 F 57 16 145/80 95 General: Conversant, No Apparent Distress HEENT: Atraumatic, Normocephaly, Mucus Membranes Moist Neck: No JVD, Normal carotid pulses Cardiac: Reg Rate and Rhythm, Normal S1 and S2, No Murmur Lungs: Normal Breath Sounds, No Wheeze, Rales, Rhonchi Neuro: Alert and responsive, No focal deficits noted Abdomen: Soft, Non-Tender Skin: No rashes noted on visualized skin Musculoskeletal: No Chest Wall Tenderness Extremities: No Clubbing, No Cyanosis, No Edema, Normal Pulses Results 09/26/17 04:52 09/26/17 04:52 Lab Results Impressions Chest X-Ray 09/25/17 18:52 IMPRESSION: No acute findings D/ / Emiliana Alvares MD / Emiliana Alvares MD Interpreting Provider: Emiliana Alvares MD Abdomen/Pelvis CTA 09/25/17 19:41 IMPRESSION: No evidence of dissection. Ascending thoracic aortic aneurysm measuring up to 3.6 cm. No acute findings in the chest, abdomen, or pelvis. Diverticulosis. No evidence of acute diverticulitis. D/ / Emiliana Alvares MD / Emiliana Alvares MD Interpreting Provider: Emiliana Alvares MD Chest CTA 09/25/17 19:41 IMPRESSION: No evidence of dissection. Ascending thoracic aortic aneurysm measuring up to 3.6 cm. No acute findings in the chest, abdomen, or pelvis. Diverticulosis. No evidence of acute diverticulitis. D/ / Emiliana Alvares MD / Emiliana Alvares MD Interpreting Provider: Emiliana Alvares MD Active Medications Acetaminophen (Tylenol) 650 mg PO Q6HR PRN PRN Reason: Mild Pain/Fever Stop: 03/27/18 22:37 Alprazolam (Xanax) 0.25 mg PO HS HENRIK PRN Reason: Protocol Stop: 03/27/18 23:46 Last Admin: 09/25/17 23:53 Dose: 0.25 mg Sodium Chloride (0.9 % Sodium Chloride) 1,000 mls @ 75 mls/hr IVC .[id number] [facility] Stop: 09/27/17 01:24 Last Admin: 09/26/17 12:53 Dose: 75 mls/hr Lisinopril (Zestril) 20 mg PO QAM HENRIK PRN Reason: Protocol Stop: 03/28/18 09:01 Last Admin: 09/26/17 09:36 Dose: 20 mg Metoprolol Tartrate (Lopressor) 25 mg PO BID [facility] Stop: 03/28/18 09:01 Naloxone HCl (Narcan) 0.4 mg IVP Q2MIN PRN PRN Reason: SEE COMMENTS Stop: 03/27/18 22:35 Naloxone HCl (Narcan) 0.4 mg IVP Q2MIN PRN PRN Reason: SEE COMMENTS Stop: 03/27/18 22:37 Nitroglycerin (Nitroglycerin) 0.4 mg SL AD PRN PRN Reason: Chest Pain Stop: 03/27/18 22:38 Omeprazole (Prilosec) 20 mg PO 0630 [facility] Stop: 03/28/18 06:31 Last Admin: 09/26/17 05:02 Dose: 20 mg Rivaroxaban (Xarelto) 20 mg PO QPM [facility] Stop: 03/27/18 23:44 Last Admin: 09/25/17 23:53 Dose: 20 mg Tramadol HCl (Ultram) 50 mg PO Q6HR PRN PRN Reason: Moderate Pain Stop: 03/27/18 22:37 Vitamin D (Vitamin D) 1,000 unit PO DAILY [facility] Stop: 03/28/18 09:01 Last Admin: 09/26/17 09:36 Dose: 1,000 unit Laboratory Tests 09/25/17 09/25/17 09/26/17 19:38 23:01 04:52 Hgb 11.1 L D Potassium Creatinine Magnesium Troponin I 0.05 H* 0.40 H* 09/26/17 09/26/17 09/26/17 04:52 04:52 10:12 Hgb Potassium 4.1 Creatinine 0.69 Magnesium 1.9 Troponin I 0.71 H* 0.39 H* - Imaging and Cardiology Chest Xray: report reviewed Stress Test: report reviewed Echo: pending, report reviewed - EKG Interpretation EKG results cardiology: personally reviewed (ECG with a.fib RVR, HR 154.), other (Telemetry reviewed with average HR previous 12 hours noted to be 57, SB.) Consult Discharge Plan - Plan Referrals: Yovani Ruiz DO [Primary Care Provider] -
--- NOTE | 2017-09-26 16:32 | Internal Med Progress Note ---
Date of Encounter: 09/26/17 Time of Encounter: 16:30 - Assessment and plan (1) Atrial fibrillation with RVR Current Visit: Yes Status: Acute Assessment and plan: Patient with known atrial fibrillation/PAF. She is on Xarelto for anticoagulation. Does not tolerate A-V nico blockers due to bradycardia when in a sinus rhythm. Was intolerant of Cardizem at home. On admission she was in A. fib with a rapid ventricular response and then converted to a sinus rhythm with a heart rate in the 50s. She follows with Dr. 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 She has been pain-free. Qualifiers: Chest pain type: unspecified Qualified Code(s): R07.9 - Chest pain, unspecified (3) Elevated troponin Current Visit: Yes Status: Acute Assessment and plan: Troponin 0.05, 0.4, 0.71 and then 0.39 in the setting of atrial fib with rapid ventricular response. No further chest pain. EKG in sinus rhythm unchanged from baseline Stress test 08/2015 with prior infarct but no evidence of reversible ischemia 08/2015 TTE with LVEF of 45-50%. Cardiology saw the patient and does not suspect an STEMI. Suspect demand ischemia related to atrial fib with rapid ventricular response We will check an echocardiogram and they will make further recommendations pending findings on the echo (4) CAD (coronary artery disease) Current Visit: Yes Status: Chronic Assessment and plan: Patient with CAD status post 2 vessel CABG and mitral valve repair On aspirin Intolerant of beta mauricio due to bradycardia Qualifiers: Coronary Disease-Associated Artery/Lesion type: [place] artery [place] vs. transplanted heart: [place] heart Associated angina: without angina Qualified Code(s): I25.10 - Atherosclerotic heart disease of [place] coronary artery without angina pectoris (5) DVT prophylaxis Current Visit: No Status: Acute Assessment and plan: On Xarelto (6) History of hypertension Current Visit: No Status: Chronic Assessment and plan: Blood pressure well controlled (7) Iron deficiency anemia Current Visit: No Status: Acute Assessment and plan: Patient with history of iron deficiency anemia baseline appears to be around 11 which is where she is now No signs of bleeding Qualifiers: Iron deficiency anemia type: unspecified iron deficiency Qualified Code(s) : D50.9 - Iron deficiency anemia, unspecified - Subjective Interval history: Patient was sitting up in bed in no distress. She is denying any chest pain, fever, chills, shortness of breath, abdominal pain, nausea or vomiting. Awaiting cardiology input. - Constitutional Vitals: Temp Pulse Resp BP Pulse Ox 97.9 F 62 16 139/75 93 09/26/17 15:12 09/26/17 15:12 09/26/17 15:12 09/26/17 15:12 09/26/17 15:12 General appearance: Present: cooperative, A&O X 3, pleasant, no acute distress, answers questions appropriately - Head Head exam: Present: atraumatic, normocephalic - Eye Eye exam: Present: PERRL, conjuntiva pink, sclera anicteric Pupils: Present: PERRL - Neck Neck exam general surgery: Present: supple, trachea midline. Absent: lymphadenopathy - Respiratory Respiratory exam: Present: CTAB. Absent: accessory muscle use, rales, rhonchi, wheezes - Cardiovascular Cardiovascular exam: Present: RRR, +S1, +S2. Absent: diastolic murmur, gallop, rubs, systolic murmur - GI/Abdominal GI/Abdominal exam: Present: normal bowel sounds, soft, no peritoneal signs. Absent: distended, tenderness - Extremities Exam Extremities exam: Present: warm, radial pulses palpable and symmetrical. Absent : calf tenderness, cyanotic, pedal edema - Neurological Exam Neurological exam: Present: alert, CN II-XII intact, oriented X3, no focal deficits. Absent: pronater drift, facial droop, speech deficit - Skin Skin exam: Present: dry, intact, normal color, warm Internal Medicine: Result - Labs CBC & Chem 7: 09/26/17 04:52 09/26/17 04:52 Labs: Short CBC 09/26/17 Range/Units 04:52 WBC 5.3 (4.3-11.1) K/mcL Hgb 11.1 L D (11.5-15.4) g/dL Hct 34.7 L (35.3-44.9) % Plt Count 259 (140-400) K/mcL BMP 09/26/17 04:52 Sodium 142 Potassium 4.1 Chloride 111 H Carbon Dioxide 24 BUN 15 Creatinine 0.69 Glucose 89 Calcium 8.6 Cardiac Enzymes 09/25/17 09/26/17 09/26/17 Range/Units 23:01 04:52 10:12 Troponin I 0.40 H* 0.71 H* 0.39 H* (< 0.04) ng/mL Liver Function 09/26/17 Range/Units 04:52 Total Bilirubin 0.3 (0.3-1.0) mg/dL AST 29 (13-39) Units/L ALT 28 (7-52) Units/L Alkaline Phosphatase 69 (34-104) Units/L Albumin 3.4 L (3.5-5.7) g/dL - ABG Interpretation ABG results: PT/INR, D-dimer PT 11.5 Seconds (9.4-12.1) 09/25/17 19:38 Consult Discharge Plan - Plan Referrals: Yovani Ruiz DO [Primary Care Provider] -
[2017-09-26] MEDS: *HR* Rivaroxaban 10 MG TABLET PO SCH (17:23)
[2017-09-26] MEDS ORDERED: *HR* Rivaroxaban 10 MG TABLET PO SCH (18:00)
[2017-09-26] MEDS ORDERED: ALPRAZolam 0.5 MG TABLET PO SCH (21:00)
[2017-09-26] MEDS: ALPRAZolam 0.5 MG TABLET PO SCH (21:38)
[2017-09-27] MEDS: Cholecalciferol (D-3) 1,000 UNIT TABLET PO SCH (08:44)
[2017-09-27] MEDS: Lisinopril 20 MG TABLET PO SCH (08:44)
[2017-09-27] MEDS: Aspirin Enteric Coated 81 MG Tablet PO SCH (08:44)
--- NOTE | 2017-09-27 13:01 | Internal Med Progress Note ---
Date of Encounter: 09/27/17 Time of Encounter: 12:58 - Assessment and plan (1) Atrial fibrillation with RVR Current Visit: Yes Status: Acute Assessment and plan: Patient with known atrial fibrillation/PAF. She is on Xarelto for anticoagulation. Does not tolerate A-V nico blockers due to bradycardia when in a sinus rhythm. Was intolerant of Cardizem at home. On admission she was in A. fib with a rapid ventricular response and then converted to a sinus rhythm with a heart rate in the 50s. She follows with Dr. 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 (2) Chest pain Current Visit: Yes Status: Acute Assessment and plan: Chest pain resolved after converted back to her sinus rhythm. She has been pain -free. Qualifiers: Chest pain type: unspecified Qualified Code(s): R07.9 - Chest pain, unspecified (3) Elevated troponin Current Visit: Yes Status: Acute Assessment and plan: Troponin 0.05, 0.4, 0.71 and then 0.39 in the setting of atrial fib with rapid ventricular response. No further chest pain. EKG in sinus rhythm unchanged from baseline Stress test 08/2015 with prior infarct but no evidence of reversible ischemia 08/2015 TTE with LVEF of 45-50%. Cardiology saw the patient and does not suspect an STEMI. Suspect demand ischemia related to atrial fib with rapid ventricular response echocardiogram reviewed, LVEF 25-30% which is decreased compared to previous echo 2016. Severe global left ventricular systolic dysfunction. Mild/moderate mitral regurg. Mild/moderate mitral stenosis. Mean transient gradient is mean 5 mm Hg. Severely dilated left atrium. Mild pulmonary hypertension. (4) CAD (coronary artery disease) Current Visit: Yes Status: Chronic Qualifiers: Coronary Disease-Associated Artery/Lesion type: [place] artery [place] vs. transplanted heart: [place] heart Associated angina: without angina Qualified Code(s): I25.10 - Atherosclerotic heart disease of [place] coronary artery without angina pectoris (5) DVT prophylaxis Current Visit: No Status: Acute Assessment and plan: Continue Xarelto (6) History of hypertension Current Visit: No Status: Chronic Assessment and plan: Blood pressure controlled (7) Iron deficiency anemia Current Visit: No Status: Acute Assessment and plan: history of iron deficiency anemia baseline appears to be around 11 which is where she is now No signs of bleeding Qualifiers: Iron deficiency anemia type: unspecified iron deficiency Qualified Code(s) : D50.9 - Iron deficiency anemia, unspecified (8) Constipation Current Visit: Yes Status: Acute Assessment and plan: miralax and lactulose Qualifiers: Constipation type: unspecified constipation type Qualified Code(s): K59.00 - Constipation, unspecified - Subjective Interval history: Patient was lying in bed in no distress. She is denying any chest pain, fever, chills, shortness of breath, abdominal pain, nausea or vomiting. Cardiology plans cardiac cath in the a.m. - Constitutional Vitals: Temp Pulse Resp BP Pulse Ox 98.0 F 62 16 146/79 93 09/27/17 06:51 09/27/17 06:51 09/27/17 06:51 09/27/17 06:51 09/27/17 06:51 General appearance: Present: cooperative, A&O X 3, pleasant, no acute distress, answers questions appropriately - Head Head exam: Present: atraumatic, normocephalic - Eye Eye exam: Present: PERRL, conjuntiva pink, sclera anicteric Pupils: Present: PERRL - Neck Neck exam general surgery: Present: supple, trachea midline. Absent: lymphadenopathy - Respiratory Respiratory exam: Present: CTAB. Absent: accessory muscle use, rales, rhonchi, wheezes - Cardiovascular Cardiovascular exam: Present: RRR, +S1, +S2. Absent: diastolic murmur, gallop, rubs, systolic murmur - GI/Abdominal GI/Abdominal exam: Present: normal bowel sounds, soft, no peritoneal signs. Absent: distended, tenderness - Extremities Exam Extremities exam: Present: warm, radial pulses palpable and symmetrical. Absent : calf tenderness, cyanotic, pedal edema - Neurological Exam Neurological exam: Present: alert, CN II-XII intact, oriented X3, no focal deficits. Absent: pronater drift, facial droop, speech deficit - Skin Skin exam: Present: dry, intact, normal color, warm Internal Medicine: Result - Labs CBC & Chem 7: 09/26/17 04:52 09/26/17 04:52 - ABG Interpretation ABG results: PT/INR, D-dimer PT 11.5 Seconds (9.4-12.1) 09/25/17 19:38 - Impressions Impressions Echocardiogram 09/27/17 13:48 Impressions: Severe global left ventricular systolic dysfunction. Mild-moderate mitral regurgitation. Mild-moderate mitral stenosis. Mean transmitral gradient is Mean 5 mmHg (history of MV repair per patient) Severely dilated left atrium. Mild pulmonary hypertension. LVEF 25-30%, decreased compared to previous TTE 2016 Left Ventricular Wall Motion: Rest Echo Findings The apex, apical inferior, mid inferior, basal inferior, apical anterior, mid anterior, basal anterior, apical septal, mid inferior septal, basal inferior septal, apical lateral, mid anterior lateral, basal anterior lateral, mid anterior septal, mid inferior lateral, basal anterior septal and basal inferior lateral montiel were hypokinetic. Findings: Study Quality * Technically adequate exam. Right Ventricle * Normal right ventricular structure and function. Right Atrium * Normal right atrial size. Interatrial Septum * No evidence of PFO by color Doppler. Aorta * Normally sized aortic root. Pericardium * The pericardium appears normal. ECG Findings * Normal sinus rhythm. Left Ventricle * Diastolic dysfunction, NOS * LVEF 25-30%. * Severe global left ventricular systolic dysfunction. Mitral Valve * Normal mitral valve structure. * Mild-moderate mitral regurgitation. * Mild-moderate mitral stenosis. * Mean transmitral gradient is Mean 5 mmHg (history of MV repair per patient) Aortic Valve * Normal aortic valve structure. * Mild aortic regurgitation. * No aortic stenosis. Left Atrium * Severely dilated left atrium. Tricuspid Valve * No tricuspid stenosis. * Estimated RVSP is 35 mmHg. * Mild pulmonary hypertension. * Mild tricuspid regurgitation. Pulmonic Valve * No pulmonic stenosis. * Mild pulmonic regurgitation. IVC * Normal IVC dimensions and inspiratory collapse. Consult Discharge Plan - Plan Referrals: Yovani Ruiz DO [Primary Care Provider] -
--- NOTE | 2017-09-27 13:31 | Cardiology Progress Note ---
Date of Encounter: 09/27/17 Time of Encounter: 13:00 Assessment and Plan (1) Atrial fibrillation with RVR Current Visit: Yes Status: Acute Per cardiology: -Known a.fib. -On xarelto for anticoagulation. -Not on dialy AV nico blockers due to bradycardia when in SR. -Attempted to take PRN cardizem at home without success. -Was a.fib RVR on admission. -Now SR, HR 50-60. 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 (2) Elevated troponin Current Visit: Yes Status: Acute Per cardiology: -Troponins 0.05, 0.4, 0.71, 0.39 in the setting of a.fib with RVR> -Patient had one episode of chest pain while in a.fib RVR, resolved when she converted to SR. -ECG when in SR, unchanged from baseline. -08/2015 stress with no evidence of reversible ischemia. Prior infarct noted. -08/2015 TTE with LVEF 45-50%. -TTE with LVEF 25-30%, global hypokinesis. -With further significant reduction in LVEF, recommend LHC. Risks versus benefits of LHC explained to pateint. Patient states understanding and agreeable to proceed. On juan j inhibitor, not on beta mauricio due to bradycardia. -WIll hold xaretlo tonight. -Further recommendations pending [facility]. . (3) CAD (coronary artery disease) Current Visit: Yes Status: Chronic Per cardiology: -Known history of CAD s/p 2 vessel CABG. -[facility] 2012 with 1/2 patent bypass grafts. -On asa, statin. Not on beta mauricio due to bradycardia. -Of note, also had mitral valve repair at time of CABG. -Plan for [facility] tomorrow. Qualifiers: Coronary Disease-Associated Artery/Lesion type: [place] artery [place] vs. transplanted heart: [place] heart Associated angina: without angina Qualified Code(s): I25.10 - Atherosclerotic heart disease of [place] coronary artery without angina pectoris Discussion w patient/family: The assessment and plan as outlined above was discussed with the patient who expressed understanding and agreement. All questions were answered. Thank you for involving us in the care of your patient. Please call with any questions. Discussed and reviewed with . Subjective Principal diagnosis: a.fib Interval history: Patient states she feels well today Denies palpitations or fluttering. Denies chest pain. Objective Vital Signs Temperature 98.8 F 09/25/17 18:48 Pulse Rate 157 09/25/17 18:48 Respiratory Rate 18 09/25/17 18:48 Blood Pressure 153/96 09/25/17 18:48 O2 Sat by Pulse Oximetry 93 09/25/17 18:48 Temperature 98.0 F 09/27/17 06:51 Pulse Rate 62 09/27/17 06:51 Respiratory Rate 16 09/27/17 06:51 Blood Pressure 146/79 09/27/17 06:51 O2 Sat by Pulse Oximetry 93 09/27/17 06:51 Oxygen Delivery Oxygen Delivery Room Air General: Conversant, No Apparent Distress HEENT: Atraumatic, Normocephaly, Mucus Membranes Moist Neck: No JVD, Normal carotid pulses Cardiac: Reg Rate and Rhythm, Normal S1 and S2, No Murmur Lungs: Normal Breath Sounds, No Wheeze, Rales, Rhonchi Neuro: Alert and responsive, No focal deficits noted Abdomen: Soft, Non-Tender Skin: No rashes noted on visualized skin Musculoskeletal: No Chest Wall Tenderness Extremities: No Clubbing, No Cyanosis, No Edema, Normal Pulses Results 09/26/17 04:52 09/26/17 04:52 Impressions Echocardiogram 09/27/17 13:48 Impressions: Severe global left ventricular systolic dysfunction. Mild-moderate mitral regurgitation. Mild-moderate mitral stenosis. Mean transmitral gradient is Mean 5 mmHg (history of MV repair per patient) Severely dilated left atrium. Mild pulmonary hypertension. LVEF 25-30%, decreased compared to previous TTE 2015 Left Ventricular Wall Motion: Rest Echo Findings The apex, apical inferior, mid inferior, basal inferior, apical anterior, mid anterior, basal anterior, apical septal, mid inferior septal, basal inferior septal, apical lateral, mid anterior lateral, basal anterior lateral, mid anterior septal, mid inferior lateral, basal anterior septal and basal inferior lateral montiel were hypokinetic. Findings: Study Quality * Technically adequate exam. Right Ventricle * Normal right ventricular structure and function. Right Atrium * Normal right atrial size. Interatrial Septum * No evidence of PFO by color Doppler. Aorta * Normally sized aortic root. Pericardium * The pericardium appears normal. ECG Findings * Normal sinus rhythm. Left Ventricle * Diastolic dysfunction, NOS * LVEF 25-30%. * Severe global left ventricular systolic dysfunction. Mitral Valve * Normal mitral valve structure. * Mild-moderate mitral regurgitation. * Mild-moderate mitral stenosis. * Mean transmitral gradient is Mean 5 mmHg (history of MV repair per patient) Aortic Valve * Normal aortic valve structure. * Mild aortic regurgitation. * No aortic stenosis. Left Atrium * Severely dilated left atrium. Tricuspid Valve * No tricuspid stenosis. * Estimated RVSP is 35 mmHg. * Mild pulmonary hypertension. * Mild tricuspid regurgitation. Pulmonic Valve * No pulmonic stenosis. * Mild pulmonic regurgitation. IVC * Normal IVC dimensions and inspiratory collapse. Current Medications Acetaminophen (Tylenol) 650 mg PO Q6HR PRN PRN Reason: Mild Pain/Fever Stop: 03/27/18 22:37 Alprazolam (Xanax) 0.25 mg PO HS [facility]K PRN Reason: Protocol Stop: 03/27/18 23:46 Last Admin: 09/26/17 21:38 Dose: 0.25 mg Aspirin (Aspirin Ec) 81 mg PO DAILY [facility] Stop: 03/29/18 09:01 Last Admin: 09/27/17 08:44 Dose: 81 mg Atorvastatin Calcium (Lipitor) 40 mg PO HS HENRIK Stop: 03/28/18 21:01 Last Admin: 09/26/17 21:38 Dose: 40 mg Lactulose (Lactulose) 20 gm PO HS [facility] Stop: 03/29/18 21:01 Lisinopril (Zestril) 20 mg PO QAM [facility] PRN Reason: Protocol Stop: 03/28/18 09:01 Last Admin: 09/27/17 08:44 Dose: 20 mg Naloxone HCl (Narcan) 0.4 mg IVP Q2MIN PRN PRN Reason: SEE COMMENTS Stop: 03/27/18 22:37 Nitroglycerin (Nitroglycerin) 0.4 mg SL AD PRN PRN Reason: Chest Pain Stop: 03/27/18 22:38 Omeprazole (Prilosec) 20 mg PO 0630 [facility] Stop: 03/28/18 06:31 Last Admin: 09/27/17 06:11 Dose: 20 mg Polyethylene Glycol (Miralax) 17 gm PO DAILY [facility] Stop: 03/29/18 13:16 Tramadol HCl (Ultram) 50 mg PO Q6HR PRN PRN Reason: Moderate Pain Stop: 03/27/18 22:37 Vitamin D (Vitamin D) 1,000 unit PO DAILY [facility] Stop: 03/28/18 09:01 Last Admin: 09/27/17 08:44 Dose: 1,000 unit Laboratory Tests 09/26/17 09/26/17 04:52 04:52 Hgb 11.1 L D Creatinine 0.69 - Imaging and Cardiology Chest Xray: report reviewed Echo: report reviewed - EKG Interpretation EKG results cardiology: other (Telemetry reviewed with average HR previous 12 hours noted to be 61, SR. PVCs and PACs noted.) Consult Discharge Plan - Plan Referrals: Yovani Ruiz DO [Primary Care Provider] -
[2017-09-27] MEDS ORDERED: *HR* Enoxaparin 80 MG/0.8 ML SYRINGE SQ ONE (17:00)
[2017-09-27] MEDS: Lactulose Oral Soln 20 GM/30 ML UDC PO SCH (20:29)
[2017-09-27] MEDS: ALPRAZolam 0.5 MG TABLET PO SCH (20:29)
[2017-09-28 06:35] LABS: Hematocrit 39.5 % (35.3-44.9); Hemoglobin 12.5 g/dL (11.5-15.4); Mean Corpuscular HGB Conc 31.6 g/dL (31.6-35.5); Mean Corpuscular Hemoglobin 28.9 pg (28.0-33.3); Mean Corpuscular Volume 91.2 fL (83.0-100.0); Mean Platelet Volume 9.2 fL (9.4-12.4); Platelet Count 291 K/mcL (140-400); Red Blood Count 4.33 M/mcL (3.82-4.97)
[2017-09-28 06:59] LABS: BUN/Creatinine Ratio 15 (6-26); Blood Urea Nitrogen 11 mg/dL (8-23); Calcium 8.8 mg/dL (8.6-10.3); Carbon Dioxide 25 mEq/L (23-29); Chloride 109 mEq/L (98-107); Glucose 92 mg/dL (70-105); Osmolality,Calculated 289 (280-300); Sodium 140 mEq/L (136-145); eGFR For African Americans > 60 (> 60); eGFR For Non-African Americans > 60 (> 60)
--- NOTE | 2017-09-28 08:46 | Pre-Sedation Evaluation ---
Pre-sedation evaluation - Pre-sedation checklist Date of procedure: 09/28/17 Procedure: LHC Recent Vitals: Last Vital Signs Temp 97.9 F 09/28/17 07:47 Pulse 64 09/28/17 07:47 Resp 16 09/28/17 07:47 BP 159/88 09/28/17 07:47 Pulse Ox 92 09/28/17 07:47 ASA Classification *see protocol: CLASS II-Mild systemic disease
--- NOTE | 2017-09-28 08:56 | Event Note ---
Date of Encounter: 09/28/17 Time of Encounter: 08:55 - Cardiology Event Note Plan for LHC today for cardiomyopathy, NSTEMI. RIsks versus benefits of LHC explained to patient. Patient states understanding and agreeable to proceed. Further recommendations pending LHC.
[2017-09-28] MEDS: Lisinopril 20 MG TABLET PO SCH (09:19)
[2017-09-28] MEDS: Cholecalciferol (D-3) 1,000 UNIT TABLET PO SCH (09:19)
[2017-09-28] MEDS: Aspirin Enteric Coated 81 MG Tablet PO SCH (09:19)
[2017-09-28] MEDS ORDERED: *HR* Heparin 10,000 UNIT/10 ML VIAL ONE (10:18)
[2017-09-28] MEDS ORDERED: Heparin 1,000 UNITS/500 mL 500 ML ONE (10:18)
[2017-09-28] MEDS ORDERED: ISOVUE-370 200 ML INFUS..BTL IV ONE (10:18)
[2017-09-28] MEDS ORDERED: 0.9 % Sodium Chloride 1,000 ML ONE ×2 (10:18→10:24)
--- NOTE | 2017-09-28 10:24 | Internal Med Progress Note ---
Date of Encounter: 09/28/17 Time of Encounter: 10:22 - Assessment and plan (1) Atrial fibrillation with RVR Current Visit: Yes Status: Acute Assessment and plan: Patient with known atrial fibrillation/PAF. Xarelto for anticoagulation. Does not tolerate A-V nico blockers due to bradycardia when in a sinus rhythm. Was intolerant of Cardizem at home. On admission she was in A. fib with a rapid ventricular response and then converted to a sinus rhythm with a heart rate in the 50s. She follows with Dr. 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 She has been pain-free. Qualifiers: Chest pain type: unspecified Qualified Code(s): R07.9 - Chest pain, unspecified (3) Elevated troponin Current Visit: Yes Status: Acute Assessment and plan: Troponin 0.05, 0.4, 0.71 and 0.39 in the setting of atrial fib with rapid ventricular response. No further chest pain. EKG in sinus rhythm unchanged from baseline Stress test 08/2015 with prior infarct but no evidence of reversible ischemia 08/2015 TTE with LVEF of 45-50%. Cardiology saw the patient and does not suspect an NSTEMI. Suspect demand ischemia related to atrial fib with rapid ventricular response echocardiogram reviewed, LVEF 25-30% which is decreased compared to previous echo 2016. Severe global left ventricular systolic dysfunction. Mild/moderate mitral regurg. Mild/moderate mitral stenosis. Mean transient gradient is mean 5 mm Hg. Severely dilated left atrium. Mild pulmonary hypertension. (4) CAD (coronary artery disease) Current Visit: Yes Status: Chronic Assessment and plan: Patient history of CAD status post 2 vessel CABG and mitral valve repair On aspirin Intolerant of beta mauricio due to bradycardia Qualifiers: Coronary Disease-Associated Artery/Lesion type: [place] artery [place] vs. transplanted heart: [place] heart Associated angina: without angina Qualified Code(s): I25.10 - Atherosclerotic heart disease of [place] coronary artery without angina pectoris (5) DVT prophylaxis Current Visit: No Status: Acute Assessment and plan: Continue Xarelto as per cardiology (6) History of hypertension Current Visit: No Status: Chronic Assessment and plan: Blood pressure good control (7) Iron deficiency anemia Current Visit: No Status: Acute Assessment and plan: history of iron deficiency anemia baseline appears to be around 11 , 12.5 today No signs of bleeding Qualifiers: Iron deficiency anemia type: unspecified iron deficiency Qualified Code(s) : D50.9 - Iron deficiency anemia, unspecified (8) Constipation Current Visit: Yes Status: Resolved Assessment and plan: had a large bowel movement miralax and lactulose as needed Qualifiers: Constipation type: unspecified constipation type Qualified Code(s): K59.00 - Constipation, unspecified - Subjective Interval history: Patient lying in bed in no distress. She is denying any chest pain, fever, chills, shortness of breath, abdominal pain, nausea or vomiting. Cardiology plans [facility] today. - Constitutional Vitals: Temp Pulse Resp BP Pulse Ox 97.9 F 64 16 159/88 92 09/28/17 07:47 09/28/17 07:47 09/28/17 07:47 09/28/17 07:47 09/28/17 07:47 General appearance: Present: cooperative, A&O X 3, pleasant, no acute distress, answers questions appropriately - Head Head exam: Present: atraumatic, normocephalic - Eye Eye exam: Present: PERRL, conjuntiva pink, sclera anicteric Pupils: Present: PERRL - Neck Neck exam general surgery: Present: supple, trachea midline. Absent: lymphadenopathy - Respiratory Respiratory exam: Present: CTAB. Absent: accessory muscle use, rales, rhonchi, wheezes - Cardiovascular Cardiovascular exam: Present: irregular rhythm, +S1, +S2. Absent: diastolic murmur, gallop, rubs, systolic murmur - GI/Abdominal GI/Abdominal exam: Present: normal bowel sounds, soft, no peritoneal signs. Absent: distended, tenderness - Extremities Exam Extremities exam: Present: warm, radial pulses palpable and symmetrical. Absent : calf tenderness, cyanotic, pedal edema - Neurological Exam Neurological exam: Present: CN II-XII intact, oriented X3, no focal deficits. Absent: pronater drift, facial droop, speech deficit - Skin Skin exam: Present: dry, intact, normal color, warm Internal Medicine: Result - Labs CBC & Chem 7: 09/28/17 05:39 09/28/17 05:39 Labs: Short CBC 09/28/17 Range/Units 05:39 WBC 5.9 (4.3-11.1) K/mcL Hgb 12.5 (11.5-15.4) g/dL Hct 39.5 (35.3-44.9) % Plt Count 291 (140-400) K/mcL [facility] 09/28/17 05:39 Sodium 140 Potassium 4.0 Chloride 109 H Carbon Dioxide 25 BUN 11 Creatinine 0.73 Glucose 92 Calcium 8.8 - ABG Interpretation ABG results: PT/INR, D-dimer PT 11.5 Seconds (9.4-12.1) 09/25/17 19:38 - Impressions Impressions Echocardiogram 09/27/17 13:48 Impressions: Severe global left ventricular systolic dysfunction. Mild-moderate mitral regurgitation. Mild-moderate mitral stenosis. Mean transmitral gradient is Mean 5 mmHg (history of MV repair per patient) Severely dilated left atrium. Mild pulmonary hypertension. LVEF 25-30%, decreased compared to previous TTE 2015 Left Ventricular Wall Motion: Rest Echo Findings The apex, apical inferior, mid inferior, basal inferior, apical anterior, mid anterior, basal anterior, apical septal, mid inferior septal, basal inferior septal, apical lateral, mid anterior lateral, basal anterior lateral, mid anterior septal, mid inferior lateral, basal anterior septal and basal inferior lateral montiel were hypokinetic. Findings: Study Quality * Technically adequate exam. Right Ventricle * Normal right ventricular structure and function. Right Atrium * Normal right atrial size. Interatrial Septum * No evidence of PFO by color Doppler. Aorta * Normally sized aortic root. Pericardium * The pericardium appears normal. ECG Findings * Normal sinus rhythm. Left Ventricle * Diastolic dysfunction, NOS * LVEF 25-30%. * Severe global left ventricular systolic dysfunction. Mitral Valve * Normal mitral valve structure. * Mild-moderate mitral regurgitation. * Mild-moderate mitral stenosis. * Mean transmitral gradient is Mean 5 mmHg (history of MV repair per patient) Aortic Valve * Normal aortic valve structure. * Mild aortic regurgitation. * No aortic stenosis. Left Atrium * Severely dilated left atrium. Tricuspid Valve * No tricuspid stenosis. * Estimated RVSP is 35 mmHg. * Mild pulmonary hypertension. * Mild tricuspid regurgitation. Pulmonic Valve * No pulmonic stenosis. * Mild pulmonic regurgitation. IVC * Normal IVC dimensions and inspiratory collapse. Consult Discharge Plan - Plan Referrals: Yovani Ruiz DO [Primary Care Provider] -
[2017-09-28] MEDS ORDERED: *HR* Midazolam HCl 2 MG/2 ML VIAL ONE (10:33)
[2017-09-28] MEDS ORDERED: *HR* FentaNYL (PF) 100 MCG/2 ML VIAL ONE (10:33)
--- NOTE | 2017-09-28 11:29 | Invasive Diagnostic Lab Proc ---
Name: Lucero Ireland Date of Study: 09/28/2017 Date: 1940 Ht: 66.0in Medical Record#: [id number] Age: 76 Wt: 174.39lb Gender: Female BSA: 1.89 Order #: [id number] BMI: 28.16 Physicians Procedure Physician: Rashaad Diallo MD Referring MD: Referring MD: Staff Name Position Time In Erin Ramos RN Monitor 10:31 AM Jef Epstein RN 10:31 AM Tamika Solitario RN Cattle Dehorner 10:31 AM Aditi Rice RT (R) Scrub 10:31 AM Indications Indication Non-Stemi Cardiomyopathy Procedures Performed Procedure L HRT ART/GRFT ANGIO Pre-Procedure Checklist Informed consent is complete signed and on chart. H&P is on chart. ID band is on and ID verified with patient. Patient NPO for procedure The procedure was described for the patient and questions were answered. ECG is on chart. Plan of Care Patient will tolerate the procedure without complications. Adequate level of comfort will be maintained. Hemodynamics will remain stable Patient will recover from procedure without complications. Respiratory function will be maintained. Cardiac rhythm will remain stable. Patient temperature will be maintained. Patient and/or family have verbalized understanding of the procedure. Patient Education Chief Complaint/Reason for Test: Cardiac Cath Developmental Category: Geriatric (65+ years) Developmentally Appropriate for Age: Yes Learning Barriers: None Education Needs: Procedure Education Method: Verbal Information Taught: Cardiac Cath Educational Evaluation: Able to repeat information Intravenous Access Time IV Size Location DC'd Fluid/Drip Rate Units RN 10:17 AM 20g 1 1/" Patent On Arrival 0.9NaCl ml/hr Jef Epstein RN Allergies doxycycline Vital Signs Time BP (mmHg) HR (bpm) O2 Sat. RR (bpm) LOC 10:33 AM / % 5 = Fully awake and oriented or at pre-proc level 10:33 AM / % 5 = Fully awake and oriented or at pre-proc level 10:43 AM / % 4 = Oriented but drowsy 10:43 AM / % 5 = Fully awake and oriented or at pre-proc level 10:34 AM 169 / 100 76 97 % 27 10:38 AM 143 / 89 76 96 % 29 10:43 AM 149 / 88 67 97 % 34 10:48 AM 138 / 78 77 98 % 18 10:53 AM 152 / 89 70 99 % 17 10:58 AM 160 / 91 72 98 % 19 11:03 AM 162 / 90 % 10:58 AM / % 5 = Fully awake and oriented or at pre-proc level Procedural Medications Time Medication Dose Units Method Given By 10:33 AM Oxygen 2 L/min nasal cannula Jef Epstein RN 10:35 AM Versed 1 mg Intravenous Jef Epstein RN 10:35 AM Fentanyl 50 mcg Intravenous Jef Epstein RN 10:41 AM Lidocaine 2% 10 ml Subcutaneous Rashaad Diallo MD 10:41 AM Versed 0.5 mg Intravenous Jef Epstein RN 10:41 AM Fentanyl 25 mcg Intravenous Jef Epstein RN 10:50 AM Heparin 500 units Intravenous Jef Epstein RN ASA Classification: CLASS II- Mild systemic disease (i.e. well-controlled diabetes, hypertension, asthma, cigarette smoking) Trev Score Preprocedure Postprocedure Activity 2- Moves 4 extremities sustained head lift Activity 2- Moves 4 extremities sustained head lift Circulation 2- SBP +/= 20 points of pre-anesthetic level Circulation 2- SBP +/= 20 points of pre-anesthetic level Consciousness 2- Awake and alert oriented x 3 Consciousness 2- Awake and alert oriented x 3 O2 Saturation 2- Able to maintain O2 satruation of 92% on room air O2 Saturation 2- Able to maintain O2 satruation of 92% on room air Respiratory 2- Able to deep breathe and cough well Respiratory 2- Able to deep breathe and cough well Total Score 10 Total Score 10 Contrast Agent: Isovue Diagnostic Contrast: 74 ml Total Contrast: 74 ml Fluoro Dose: 205 mGy Procedure Log Time Note Enter By 10:31 AM CathStat 10:31 AM Pt 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 [email or web address] 10:32 AM Procedure start 10:32 [email or web address] 10:33 AM Hair removed from procedure site in holding area using clippers. Bilateral groin prepped with Chloraprep by Tamika Solitario RN, then patient was draped. Skin intact. [email or web address] 10:33 AM Vitals capture started with the following parameters, Patient=Adult, Interval=5 min, Initial Ckwmlnnk=812 mmHg, Deflation Rate=5 mmHg, Cuff placed on Right Arm 10:33 AM Time: 10:33 Oxygen on at 2 L/min per nasal cannula by Jef Epstein RN [email or web address] 10:33 AM Time: 10:33 Patient comfortable and pain free: Yes [email or web address] 10:33 AM Time: 10:33LOC: 5 = Fully awake and oriented or at pre-proc level [email or web address] 10:33 AM Clinical Presentation: Non-STEMI [email or web address] 10:34 AM HR=76 bpm, QUFC=569/100 mmhg, SpO2=97.0 %, Resp=27 B/min, Comment=SR w/BBB 10:35 AM Time: 10:35 Versed 1 mg Intravenous Given by Jef Epstein RN [email or web address] 10:35 AM Time: 10:35 Fentanyl 50 mcg Intravenous Given by Jef Epstein RN [email or web address] 10:37 AM ASA Class CLASS II- Mild systemic disease (i.e. well-controlled diabetes, hypertension, asthma, cigarette smoking) [email or web address] 10:38 AM HR=76 bpm, NNMK=930/89 mmhg, SpO2=96.0 %, Resp=29 B/min, Comment=SR w/BBB 10:39 AM Time: 10:33 Patient comfortable and pain free: Yes [email or web address] 10:39 AM Time: 10:33LOC: 5 = Fully awake and oriented or at pre-proc level [email or web address] 10:40 AM Pressure channel 1 zeroed. 10:40 AM Time out performed according to hospital policy [email or web address] 10:41 AM Time: 10:41 10 ml Lidocaine 2% to right groin Subcutaneous Given by Rashaad Diallo MD [email or web address] 10:41 AM Time: 10:41 Versed 0.5 mg Intravenous Given by Jef Epstein RN [email or web address] 10:41 AM Time: 10:41 Fentanyl 25 mcg Intravenous Given by Jef Epstein RN [email or web address] 10:42 AM Micro-Introducer Kit utilized for sheath placement [email or web address] 10:42 AM Right femoral access hand injected for sheath placement [email or web address] 10:42 AM Access obtained by percutaneous puncture. 5Fr 10cm Terumo Benton sheath placed in right Femoral artery. [id number] [email or web address] 10:43 AM Time: 10:43 Patient comfortable and pain free: Yes [facility] 10:43 AM Time: 10:43LOC: 4 = Oriented but drowsy [facility] 10:43 AM HR=67 bpm, NCHK=045/88 mmhg, SpO2=97.0 %, Resp=34 B/min, Comment=SR w/BBB 10:44 AM 5Fr FR 4 catheter inserted over the wire [facility] 10:44 AM 0.035 145cm Navilyst 3mmJ wire [id number] [facility] 10:45 AM Recorded Pressure: LV, HR=73, Condition=Condition 1 (Left Ventricle) LV 161/11/10 10:45 AM Recorded Pressure: LV, Ao, HR=73, Condition=Condition 1 (Left Ventricle) LV 155/10/10, (Aorta) Ao 157/84/114 10:46 AM Catheter selectively placed in left ventricle pressures [facility] 10:46 AM Recorded Pressure: Ao, HR=69, Condition=Condition 1 (Aorta) Ao 139/85/110 10:48 AM RCA angiography performed in multiple views. [email or web address] 10:48 AM HR=77 bpm, JICB=060/78 mmhg, SpO2=98.0 %, Resp=18 B/min, Comment=SR w/BBB 10:49 AM Recorded Pressure: Ao, HR=78, Condition=Condition 1 (Aorta) Ao 139/90/114 10:50 AM Time: 10:50 Heparin 500 units Intravenous Given by Jef Epstein RN [email or web address] 10:51 AM Left LEXX to the LAD angio performed in multiple views. [facility] 10:51 AM Recorded Pressure: Ao, HR=68, Condition=Condition 1 (Aorta) Ao 149/91/118 10:52 AM Catheter removed [facility] 10:52 AM 5Fr FL 4 catheter inserted over the wire DNC [facility] [place] 10:52 AM LCA angiography performed in multiple views. [facility] 10:53 AM HR=70 bpm, FFFY=193/89 mmhg, SpO2=99.0 %, Resp=17 B/min, Comment=SR w/BBB 10:54 AM Recorded Pressure: Ao, HR=70, Condition=Condition 1 (Aorta) Ao 149/86/114 10:55 AM Catheter removed [facility] 10:58 AM Time: 10:43 Patient comfortable and pain free: Yes [facility] 10:58 AM Time: 10:43LOC: 5 = Fully awake and oriented or at pre-proc level [facility] 10:58 AM HR=72 bpm, IBDA=773/91 mmhg, SpO2=98.0 %, Resp=19 B/min, Comment=SR w/BBB 10:59 AM Procedure completed at 10:59 [facility] 10:59 AM Did you address JESSIE flow and Dominance? Yes [facility] 11:00 AM Sign out completed: Radiation Dose 204.96 mGy Fluoro Time: 3.9 Isovue 370 - 200ml contrast 74.5 ml given by Rashaad Diallo MD. Complications: NoneCardiac Rehab Consult needed: NoConfirmed administered medications: Yes [facility] 11:00 AM Isovue 370 - 200ml,1 Bottle(s) used. [facility] 11:00 AM Arterial sheath pulled, Mynx closure device used and was Successful [id number] S/N. [facility] 11:00 AM Estimated Blood Loss: minimal [facility] 11:00 AM Post ECG SR w/ [facility] 11:00 AM Post Blood Pressure 160/91 [facility] [place] 11:01 AM 11:01 Post Pulses Bilateral DP & PT 2+ [facility] 11:01 AM Information taught Cardiac Cath and Mynx [facility] 11:01 AM Education needs Procedure, Plan of Care, and Safe & Effective Use of Medications [facility] 11:01 AM Learning barriers :None [facility] 11:01 AM Education Methods Verbal [facility] 11:01 AM Education evaluation Able to repeat information [facility] 11:02 AM Site status No bleeding/hematoma - Rt Groin as reported by Aditi Rice RT (R) at 11:02 [email or web address] 11:02 AM Opsite applied [email or web address] 11:02 AM Report given to Krystal MONDRAGON Pt taken to 3B Room #44. 11:02 [email or web address] 11:03 AM LVCG=068/90 mmhg, Comment=SR w/BBB 11:05 AM Plavix, Effient or Brilinta given No [email or web address] 11:05 AM Delay to floor No [email or web address] 11:06 AM Patient out of room: 11:06 [email or web address] 11:06 AM Family placed in consult room. [email or web address] 11:06 AM Complications: None [email or web address] 11:06 AM Fluoro Time: 3.9 [email or web address] 11:06 AM Isovue 370 - 200ml contrast 74.[address] Diallo. [email or web address] 11:06 AM Radiation Dose 204.96 mGy [email or web address] 11:07 AM Vitals capture stopped. 11:10 AM Coronary Dominance: right [email or web address] 11:12 AM Lesion found in Mid RCA. Pre Stenosis: 25 [email or web address] 11:13 AM Lesion found in Distal RCA. Pre Stenosis: 65 [email or web address] 11:13 AM Time: 10:58LOC: 5 = Fully awake and oriented or at pre-proc level [email or web address] 11:13 AM Time: 10:58 Patient comfortable and pain free: Yes [email or web address] 11:13 AM Lesion found in LMCA. Pre Stenosis: 40 [email or web address] 11:14 AM Lesion found in Mid LAD. Pre Stenosis: 100 [email or web address] 11:14 AM Lesion found in 1st Marginal. Pre Stenosis: 25 [email or web address] 11:14 AM Left Main Coronary Artery with 40% stenosis [email or web address] 11:15 AM Mid/Distal Left Anterior Descending Coronary Artery and diagonal branches with 100% stenosis. If graft is supplying this area, 0 % stenosis [email or web address] 11:15 AM Circumflex, Obtuse Marginal, Left Posterior Descending, and Left Posterolateral Coronary Arteries with 25 % stenosis. [email or web address] 11:15 AM Right Coronary, Right Posterior Descending Arteries with Right Posterolateral and Acute Marginal branches with 65 % stenosis. If graft is supplying this area, 100 % stenosis [email or web address] Complications Complication None Hemodynamics Pressures Site Systolic/A Wave Diastolic/V Wave Mean LV 161 11 10 LV 155 10 10 AO 157 84 114 AO 139 85 110 AO 139 90 114 AO 149 91 118 AO 149 86 114 Post Procedure Information Blood Pressure: 160/91 mmHg Rhythm: SR w/ BBB Post procedural instructions were given Closure Device Time Device Success/Fail 09/28/2017 11:16:00 AM MynxGrip Successful Site Checks Time Location Status Staff Sheath In? Note 11:02 AM Rt Groin No bleeding/hematoma Aditi Rice RT (R) Pulses Time Site Pre-Procedure Post-Procedure Note 09/28/2017 10:17:00 AM Bilateral DP & PT 2+ 09/28/2017 10:17:00 AM Bilateral radial 2+ 11:01:00 AM Bilateral DP & PT 2+ Updated by Erin Ramos RN on 09/28/2017 11:20:56 AM electronically signed on 09/28/2017 11:21:22 AM with status of Final
[2017-09-28] MEDS: ALPRAZolam 0.5 MG TABLET PO SCH (21:31)
[2017-09-28] MEDS: Lactulose Oral Soln 20 GM/30 ML UDC PO SCH (21:31)
[2017-09-29 06:20] LABS: Hematocrit 39.1 % (35.3-44.9); Hemoglobin 12.3 g/dL (11.5-15.4); Mean Corpuscular HGB Conc 31.5 g/dL (31.6-35.5); Mean Corpuscular Hemoglobin 28.8 pg (28.0-33.3); Mean Corpuscular Volume 91.6 fL (83.0-100.0); Mean Platelet Volume 9.1 fL (9.4-12.4); Platelet Count 285 K/mcL (140-400); Red Blood Count 4.27 M/mcL (3.82-4.97); Red Cell Distribution Width 13.7 % (11.5-14.5)
[2017-09-29 06:32] LABS: BUN/Creatinine Ratio 13 (6-26); Blood Urea Nitrogen 9 mg/dL (8-23); Calcium 8.8 mg/dL (8.6-10.3); Carbon Dioxide 25 mEq/L (23-29); Chloride 108 mEq/L (98-107); Glucose 100 mg/dL (70-105); Osmolality,Calculated 283 (280-300); Potassium 3.9 mEq/L (3.5-5.1); Sodium 137 mEq/L (136-145); eGFR For African Americans > 60 (> 60); eGFR For Non-African Americans > 60 (> 60)
--- NOTE | 2017-09-29 06:45 | Electrocardiograph Report ---
[place] [address] Test Date: 2017-09-25 Pat Name: Lucero Ireland Department: 102 Room: 3B44 Gender: F [employer] Clerk: Tmyvette : 1940 Requested By: Martha Kowalski Order Number: [id number] Reading MD: Reynaldo Gipson MD Measurements Intervals [place] Rate: 154 P: MA: 0 QRS: -32 QRSD: 119 T: 146 QT: 300 QTc: 387 Interpretive Statements ATRIAL FIBRILLATION WITH RAPID VENTRICULAR RESPONSE AND ABERRANT CONDUCTION OR PVC MARKED LEFT AXIS DEVIATION ANTEROSEPTAL MYOCARDIAL INFARCTION, PROBABLY OLD Electronically Signed On 09-29-2017 6:43:14 EDT by Reynaldo Gipson MD
--- NOTE | 2017-09-29 06:49 | Electrocardiograph Report ---
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
[2017-09-29] MEDS: Lisinopril 20 MG TABLET PO SCH (10:56)
[2017-09-29] MEDS: Aspirin Enteric Coated 81 MG Tablet PO SCH (10:56)
[2017-09-29] MEDS: Cholecalciferol (D-3) 1,000 UNIT TABLET PO SCH (10:56)
[2017-09-29 11:16] VITALS: BP 166/90
--- NOTE | 2017-09-29 12:28 | Cardiology Progress Note ---
Date of Encounter: 09/29/17 Time of Encounter: 09:30 Assessment and Plan (1) Atrial fibrillation with RVR Current Visit: Yes Status: Acute Per cardiology: -Known a.fib. -On xarelto for anticoagulation. -Not on dialy AV nico blockers due to bradycardia when in SR. -Attempted to take PRN cardizem at home without success. -Was a.fib RVR on admission. -Now SR, HR 50-60. 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 -Will resume xarelto. (2) Elevated troponin Current Visit: Yes Status: Acute Per cardiology: -Troponins 0.05, 0.4, 0.71, 0.39 in the setting of a.fib with RVR> -Patient had one episode of chest pain while in a.fib RVR, resolved when she converted to SR. -ECG when in SR, unchanged from baseline. -08/2015 stress with no evidence of reversible ischemia. Prior infarct noted. -08/2015 TTE with LVEF 45-50%. -TTE with LVEF 25-30%, global hypokinesis. -[facility] with no intervention. -Further discussed with and , plan for possible stress test as outpatient. Cardiology will sign off and will follow in outpatient setting. Follow up set. (3) CAD (coronary artery disease) Current Visit: Yes Status: Chronic Per cardiology: -Known history of CAD s/p 2 vessel CABG. -[facility] 2012 with 1/2 patent bypass grafts. -On asa, statin. Not on beta mauricio due to bradycardia. -Of note, also had mitral valve repair at time of CABG. -[facility] with no intervention, will follow in outpatient setting. Qualifiers: Coronary Disease-Associated Artery/Lesion type: [place]vas[place]ai artery [place] vs. transplanted heart: havas[place]ai heart Associated angina: without angina Qualified Code(s): I25.10 - Atherosclerotic heart disease of havas[place]ai coronary artery without angina pectoris Discussion w patient/family: The assessment and plan as outlined above was discussed with the patient who expressed understanding and agreement. All questions were answered. Thank you for involving us in the care of your patient. Please call with any questions. Discussed and reviewed with Subjective Principal diagnosis: a.fib Interval history: Patient states she feels well today Denies palpitations or fluttering. Denies chest pain. Denies issues walking or using right leg. Objective Vital Signs, Last 4 Hours Temp Pulse Resp BP Pulse Ox 09/29/17 11:16 97.3 F L 69 17 166/90 94 General: Conversant, No Apparent Distress HEENT: Atraumatic, Normocephaly, Mucus Membranes Moist Neck: No JVD, Normal carotid pulses Cardiac: Reg Rate and Rhythm, Normal S1 and S2, No Murmur Lungs: Normal Breath Sounds, No Wheeze, Rales, Rhonchi Neuro: Alert and responsive, No focal deficits noted Abdomen: Soft, Non-Tender Skin: No rashes noted on visualized skin, Other (Right groin access site without hematoma or ecchymosis. ) Musculoskeletal: No Chest Wall Tenderness Extremities: No Clubbing, No Cyanosis, No Edema, Normal Pulses Results 09/29/17 05:38 09/29/17 05:38 Lab Results Active Medications Acetaminophen (Tylenol) 650 mg PO Q6HR PRN PRN Reason: Mild Pain/Fever Stop: 03/27/18 22:37 Alprazolam (Xanax) 0.25 mg PO HS [facility] PRN Reason: Protocol Stop: 03/27/18 23:46 Last Admin: 09/28/17 21:31 Dose: 0.25 mg Aspirin (Aspirin Ec) 81 mg PO DAILY HENRIK Stop: 03/29/18 09:01 Last Admin: 09/29/17 10:56 Dose: 81 mg Atorvastatin Calcium (Lipitor) 40 mg PO HS HENRIK Stop: 03/28/18 21:01 Last Admin: 09/28/17 21:31 Dose: Not Given Lactulose (Lactulose) 20 gm PO HS [facility] Stop: 03/29/18 21:01 Last Admin: 09/28/17 21:31 Dose: Not Given Lisinopril (Zestril) 20 mg PO QAM [facility] PRN Reason: Protocol Stop: 03/28/18 09:01 Last Admin: 09/29/17 10:56 Dose: 20 mg Naloxone HCl (Narcan) 0.4 mg IVP Q2MIN PRN PRN Reason: SEE COMMENTS Stop: 03/27/18 22:37 Nitroglycerin (Nitroglycerin) 0.4 mg SL AD PRN PRN Reason: Chest Pain Stop: 03/27/18 22:38 Omeprazole (Prilosec) 20 mg PO 0630 HENRIK Stop: 03/28/18 06:31 Last Admin: 09/29/17 05:50 Dose: Not Given Polyethylene Glycol (Miralax) 17 gm PO DAILY HENRIK Stop: 03/29/18 13:16 Last Admin: 09/29/17 10:56 Dose: Not Given Tramadol HCl (Ultram) 50 mg PO Q6HR PRN PRN Reason: Moderate Pain Stop: 03/27/18 22:37 Vitamin D (Vitamin D) 1,000 unit PO DAILY HENRIK Stop: 03/28/18 09:01 Last Admin: 09/29/17 10:56 Dose: 1,000 unit Laboratory Tests 09/29/17 09/29/17 05:38 05:38 Hgb 12.3 Creatinine 0.68 - Imaging and Cardiology Chest Xray: report reviewed Echo: report reviewed Cardiac cath: report reviewed - EKG Interpretation EKG results cardiology: other (Telemetry reviewed with average HR previous 12 hours noted to be 62, SR. PVCs noted.) Consult Discharge Plan - Plan Referrals: Yovani Ruiz DO [Primary Care Provider] - 10/07/17 11:30 am
--- NOTE | 2017-09-29 14:28 | Discharge Summary ---
- NOTES TO OUTPATIENT PROVIDER Notes to Outpatient Provider: Follow with Dr Gorge Carty- discussing possible pacemaker place- possible stress test as outpatient per cardiology Date of Encounter: 09/29/17 Time of Encounter: 14:26 - Discharge Diagnosis (1) Atrial fibrillation with RVR Priority: Primary Status: Acute Comments: 1 note atrial fibrillation continue xarelto, Not on dialy AV nico blockers due to bradycardia when in SR. -Attempted to take PRN cardizem at home without success. 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 (2) Chest pain Priority: Secondary Status: Acute Comments: This has resolved most likely secondary to A. fib RVR Qualifiers: Chest pain type: unspecified Qualified Code(s): R07.9 - Chest pain, unspecified (3) Elevated troponin Priority: Secondary Status: Acute Comments: Most likely demand ischemia secondary to A. fib RVR-chest pain resolved when she converted to sinus rhythm Cardiology plan for possible stress test as outpatient Left heart catheter There is severe two vessel coronary artery disease. S/P CABG 1 of 2 patent bypass grafts. Stent placed from a prior procedure in the Mid RCA is is patent. Recommendations: Optimal medical therapy of patient's disease. Aggressive risk factor modification. (4) CAD (coronary artery disease) Priority: Secondary Status: Chronic Comments: History of CAD status post 2 vessel CABG and mitral valve repair continue with aspirin cannot take beta blockers due to bradycardia Qualifiers: Coronary Disease-Associated Artery/Lesion type: [place] artery [place] vs. transplanted heart: [place] heart Associated angina: without angina Qualified Code(s): I25.10 - Atherosclerotic heart disease of [place] coronary artery without angina pectoris (5) Iron deficiency anemia Priority: Secondary Status: Acute Qualifiers: Iron deficiency anemia type: unspecified iron deficiency Qualified Code(s) : D50.9 - Iron deficiency anemia, unspecified (6) History of hypertension Priority: Secondary Status: Chronic Comments: Continue with home medications Hospital course: Ms. Ireland is a 76 year old female with past medical history of PAF on [place] toe CAD status post CABG mitral valve repair hypertension hyperlipidemia. She presented to [facility] with complaints of being in A. fib. She had experience palpitations and fluttering. She did have when necessary Cardizem at home and took it without any improvement. Upon presentation her heart rate was 157 atrial fibrillation She did have some chest discomfort while in the emergency room. She was initiated on Cardizem drip and converted sinus rhythm her troponin was mildly elevated CT of her chest showed no pulmonary embolism however did show an aortic aneurysm measuring 3.6. Cardiology was consulted she did undergo a left heart catheter which did reveal severe two vessel coronary artery disease. S/P CABG 1 of 2 patent bypass grafts. Stent placed from a prior procedure in the Mid RCA is is patent. Cardiology recommended medical therapy and aggressive risk factor modification possible and ST to evaluate ischemia and distal RCA. Patient follows with Dr. Gorge Carty and has been discussing with him possible pacemaker placement for tachybradycardia syndrome cardiology recommends resuming Xarelto. Also cardiology plans for possible stress test as outpatient. Patient is hemodynamically stable at this time and does not have any chest pain patient is to follow-up with cardiology as an outpatient which we reviewed and she verbalized understanding. She is continue home medications including her Xarelto which she also verbalized understanding. Patient is ready for discharge. Discharge discussed with: patient, family Time spent discussing smoking cessation with patient: 3 to 10 minutes - Time Spent with Patient Total time spent providing and/or coordinating discharge services: - Discharge Medications Home Medications: ALPRAZolam [Xanax 0.5 MG Tablet] 0.5 mg PO BID 07/14/15 [History] Lisinopril [Zestril] 20 mg PO QAM 07/14/15 [History] Nitroglycerin [Nitrostat] 0.4 mg SL AD PRN 07/14/15 [History] Pantoprazole Sodium [Protonix] 40 mg PO QAM 07/14/15 [History] Rivaroxaban [Xarelto] 20 mg PO QPM 07/14/15 [History] Cholecalciferol (D-3) [Vitamin D] 1,000 unit PO DAILY 11/07/16 [History] Diltiazem [Cardizem] 30 mg PO AD PRN 01/30/17 [History] Allergies/Adverse Reactions: 3 Allergy/AdvReac Type Severity Reaction Status Date / Time doxycycline AdvReac See Verified 11/07/16 17:51 Comments Date of admission: 09/25/17 22:10 Primary care physician: Yovani Ruiz DO Consults: 09/28/17 08:56 Consult to Cardiac Rehabilitation-Phase1 [CONS] Routine Comment: Reason for Consult: NSTEMI Call Completed: No 09/28/17 10:53 Consult to Occupational Therapy [CONS] Routine Comment: Evaluate, develop and implement POC Reason for Consult: decondtioning, LHC today but eval before discharge Does patient have active BEDREST order?: No Is patient medically & hemodynamically stable?: Yes Patient assessed for mobility or mobilized this visit?: Yes Consult to Physical Therapy [CONS] Routine Comment: Evaluate, develop and implement POC Reason for Consult: deconditioning, LHC today Does patient have active BEDREST order?: No Is patient medically & hemodynamically stable?: Yes Patient assessed for mobility or mobilized this visit?: No Consult to Nail Assembly Machine Operator [CONS] Routine Reason for SW Consult: discharge needs Discharging clinician: Rosie Anderson Anticipated date of discharge: 09/29/17 - Constitutional Vitals: Temp Pulse Resp BP Pulse Ox 97.3 F L 69 17 166/90 94 09/29/17 11:16 09/29/17 11:16 09/29/17 11:16 09/29/17 11:16 09/29/17 11:16 General appearance: Present: cooperative, A&O X 3, pleasant, no acute distress, answers questions appropriately - Head Head exam: Present: atraumatic, normocephalic - Eye Eye exam: Present: PERRL, conjuntiva pink, sclera anicteric Pupils: Present: PERRL - Neck Neck exam general surgery: Present: supple, trachea midline. Absent: lymphadenopathy - Respiratory Respiratory exam: Present: CTAB. Absent: accessory muscle use, rales, rhonchi, wheezes - Cardiovascular Cardiovascular exam: Present: RRR, +S1, +S2. Absent: diastolic murmur, gallop, rubs, systolic murmur - GI/Abdominal GI/Abdominal exam: Present: normal bowel sounds, soft, no peritoneal signs. Absent: distended, tenderness - Extremities Exam Extremities exam: Present: warm, radial pulses palpable and symmetrical. Absent : calf tenderness, cyanotic, pedal edema - Neurological Exam Neurological exam: Present: CN II-XII intact, oriented X3, no focal deficits. Absent: pronater drift, facial droop, speech deficit - Skin Skin exam: Present: dry, intact - Patient Status Disposition: Home, Self-Care Condition: Good Functional capacity at discharge: independent ambulation - Discharge Instructions Instructions: Atrial Fibrillation (DC), Left Heart Catheterization (DC) Follow Up With: Yovani Ruiz DO [Primary Care Provider] - 10/07/17 11:30 am Virgilio Calabrese DO [Partnered Physician] - (The office will be calling you to schedule an appointment) - Diet and Activity Activity: resume usual activities as tolerated Diet: low fat, low cholesterol, low salt diet
[2017-09-29] MEDS ORDERED: *HR* Rivaroxaban 10 MG TABLET PO SCH (17:00)
== END 2017-09-29 15:07 | disposition home or self-care (01) ==
LOC: EMEROO 18:46 → 3BNU 18:46 → SUATTDRO 22:10 → 3BNU 22:29
PROVIDERS: ADMIT Internal Medicine Hematology & Oncology; ATTEND Internal Medicine Cardiovascular Disease

== ENCOUNTER 2018-08-13 00:01 | Observation (INO) ==
[2018-08-13 00:48] LABS: Basophils # 0.1 K/mcL (0.0-0.2); Basophils % 0.8 %; Eosinophils # 0.1 K/mcL (0.0-0.6); Eosinophils % 1.7 %; Hematocrit 39.3 % (35.3-44.9); Immature Granulocytes % 0.3 % (0-4); Lymphocytes # 2.3 K/mcL (0.6-4.6); Mean Corpuscular HGB Conc 33.1 g/dL (31.6-35.5); Mean Corpuscular Hemoglobin 30.4 pg (28.0-33.3); Mean Platelet Volume 8.7 fL (9.4-12.4); Monocytes # 0.6 K/mcL (0.0-1.3); Monocytes % 7.2 %; Neutrophils # 4.8 K/mcL (1.6-8.9); Platelet Count 264 K/mcL (140-400); Red Blood Count 4.27 M/mcL (3.82-4.97); Red Cell Distribution Width 13.3 % (11.5-14.5)
[2018-08-13 00:56] LABS: INR 1.9; Prothrombin Time 21.6 Seconds (9.4-12.1)
[2018-08-13 00:58] LABS: Activated Partial Thrombo Time 45.8 Seconds (26.0-36.0)
[2018-08-13 01:09] LABS: BUN/Creatinine Ratio 16 (6-26); Blood Urea Nitrogen 21 mg/dL (8-23); Calcium 9.3 mg/dL (8.6-10.3); Carbon Dioxide 24 mEq/L (23-29); Chloride 104 mEq/L (98-107); Glucose 117 mg/dL (70-105); Osmolality,Calculated 286 (280-300); Potassium 4.2 mEq/L (3.5-5.1); Sodium 136 mEq/L (136-145); eGFR For Non-African Americans 40 (> 60)
[2018-08-13 01:10] LABS: Troponin I < 0.03 ng/mL (< 0.04)
--- NOTE | 2018-08-13 01:17 | Emergency Department Note ---
Disposition Clinical Impression: Atrial fibrillation with RVR Disposition: Admitted As Inpatient Condition: Good Referrals: Yovani Ruiz DO [Primary Care Provider] - Forms: ED Satisfaction Letter Arrhythmia/Palpitations HPI - General Chief Complaint: ED Arrhythmia/Palpitations Stated Complaint: pt states she is in afib has pacemaker Time Seen by Provider: 08/13/18 00:37 Source: patient Limitations: no limitations Nursing Notes Reviewed: Yes Vital Signs Reviewed: Yes - History of Present Illness HPI Narrative: 77-year-old female presents to the emergency room for palpitations. History of atrial fibrillation with RVR. She has a pacemaker defibrillator present. She denies chest pain. States around 9 PM she will like her heart rate went up and she felt like she was back in a A. fib with RVR rate. She been on Cardizem in the past but is no longer on that. She is on 2 blood pressure medications. She takes amlodipine and Coreg. She states she feels decently well at this time. She denies any other complaints. She denies vomiting or diarrhea. No recent sickness or illness. - Related Data Home Medications Medication Instructions Recorded Confirmed ALPRAZolam [Xanax 0.5 MG Tablet] 0.5 mg PO BID 07/14/15 02/26/18 Lisinopril [Zestril] 20 mg PO QAM 07/14/15 02/26/18 Nitroglycerin [Nitrostat] 0.4 mg SL AD PRN 07/14/15 02/26/18 Pantoprazole Sodium [Protonix] 40 mg PO QAM 07/14/15 02/26/18 Cholecalciferol (D-3) [Vitamin D] 1,000 unit PO DAILY 11/07/16 02/26/18 Carvedilol [Coreg] 3.125 mg PO BIDWM 02/23/18 02/26/18 Previous Rx's Medication Instructions Recorded Rivaroxaban [Xarelto] 20 mg PO QPM #0 02/24/18 Cyclobenzaprine [Flexeril] 10 mg PO TID #15 tablet 02/26/18 Allergies Allergy/AdvReac Type Severity Reaction Status Date / Time doxycycline AdvReac See Verified 08/13/18 00:22 Comments Review of Systems: Gen.: No fevers or chills or new weakness Eyes: Denies double vision or any vision changes Ears: Denies any otalgia Pharynx: Denies sore throat CV: Denies chest pain. Respiratory positive for palpitations. : Denies any cough or sputum production. No shortness of breath. GI: Denies any nausea, vomiting, diarrhea, constipation. Denies abdominal pain Neuro: Denies any headache. No problems with ambulation. No numbness. Skin: Denies any rashes or abrasions Psych: Denies any depression or suicidal or homicidal ideation Musculoskeletal: Denies any arthralgias or myalgias Past Medical History - Past Medical History Medical history: Reports: atrial fibrillation, coronary artery disease, hypertension Surgical history: Reports: appendectomy, coronary bypass (CABG), knee replacement, thyroidectomy Psychiatric history: Reports: anxiety BENCH SHEAR OPERATOR history: Reports: no BENCH SHEAR OPERATOR history - Social History Smoking Status: Never smoker Smokeless Tobacco Status: No Alcohol use: Reports: none Drug use: Reports: none Physical Exam HEENT: Head atraumatic normocephalic. Pharynx clear with no exudates. Oral mucosa moist. Uvula midline. TMs clear bilaterally. Trachea midline. No lymphadenopathy. Heart: Positive A. fib with RVR . No gallops, rubs, or murmurs. Lungs: Clear to auscultation bilaterally. No evidence of any rhonchi wheezing or rales. Abdomen: Soft nontender nondistended. Positive bowel sounds. No peritoneal signs. Extremities: No evidence of cyanosis clubbing or edema. Neuro: Cranial nerves II through XII grossly intact. No focal motor or sensory deficits. Speech is clear. Skin: Normal color. dry. Psych: normal mentation. - General Limitations: no limitations General appearance: alert Course - Reevaluation(s) Reevaluation #1: Patient still in A. fib with RVR running around 120s. I have ordered 10 mg of IV diltiazem times one dose. Reevaluation #2: Patient was given the diltiazem and then shortly thereafter converted over to an atrial paced rhythm at 60. She was symptomatic during the conversion. Vital Signs Temperature 98.0 F 08/13/18 00:23 Pulse Rate 72 08/13/18 00:23 Respiratory Rate 16 08/13/18 00:23 Blood Pressure 121/78 08/13/18 00:23 O2 Sat by Pulse Oximetry 94 08/13/18 00:23 Temperature 98.0 F 08/13/18 00:23 Pulse Rate 60 08/13/18 03:06 Respiratory Rate 20 08/13/18 03:06 Blood Pressure 116/73 08/13/18 03:06 O2 Sat by Pulse Oximetry 94 08/13/18 00:23 Oxygen Delivery Oxygen Delivery Room Air Arrhythmia/Palpitations - MDM Narrative Medical decision making narrative: Patient Malvin fib with RVR. I did give her a dose of diltiazem. We will see if she responds to this. Patient need to be admitted. - Medical Records Medical records reviewed: Yes I reviewed the patient's medical records. - Lab Data Lab results reviewed: Yes I reviewed the patient's lab results. Result diagrams: 08/13/18 00:39 08/13/18 00:39 Lab Results 08/13/18 08/13/18 08/13/18 Range/Units 00:39 00:39 00:39 WBC 7.8 (4.3-11.1) K/mcL RBC 4.27 (3.82-4.97) M/mcL Hgb 13.0 (11.5-15.4) g/dL Hct 39.3 (35.3-44.9) % MCV 92.0 (83.0-100.0) fL MCH 30.4 (28.0-33.3) pg MCHC 33.1 (31.6-35.5) g/dL RDW 13.3 (11.5-14.5) % Plt Count 264 (140-400) K/mcL MPV 8.7 L (9.4-12.4) fL Immature Gran % 0.3 (0-4) % Seg Neutrophils % 61.0 % Lymphocytes % 29.0 % Monocytes % 7.2 % Eosinophils % 1.7 % Basophils % 0.8 % Neutrophils # 4.8 (1.6-8.9) K/mcL Lymphocytes # 2.3 (0.6-4.6) K/mcL Monocytes # 0.6 (0.0-1.3) K/mcL Eosinophils # 0.1 (0.0-0.6) K/mcL Basophils # 0.1 (0.0-0.2) K/mcL PT 21.6 H (9.4-12.1) Seconds INR 1.9 APTT 45.8 H (26.0-36.0) Seconds Sodium 136 (136-145) mEq/L Potassium 4.2 (3.5-5.1) mEq/L Chloride 104 (98-107) mEq/L Carbon Dioxide 24 (23-29) mEq/L BUN 21 (8-23) mg/dL Creatinine 1.29 H (0.60-1.20) mg/dL Est GFR ( Amer) 48 L (> 60) Est GFR (Non-Af Amer) 40 L (> 60) BUN/Creatinine Ratio 16 (6-26) Glucose 117 H (70-105) mg/dL Calculated Osmolality 286 (280-300) Calcium 9.3 (8.6-10.3) mg/dL Troponin I < 0.03 (< 0.04) ng/mL - Radiology Data Radiology results reviewed: Yes I reviewed the patient's radiology results. - EKG Data EKG attestation: Yes I reviewed and interpreted this EKG. EKG results narrative: EKG shows a rate of 139. A. fib with RVR present. Left axis deviation. QRS 119. QTC 393. No signs acute ischemia. Critical Care Time Critical Care Time: No
[2018-08-13] MEDS ORDERED: Naloxone 0.4 MG/ML INJ IVP PRN (08:11)
[2018-08-13] MEDS ORDERED: ALPRAZolam 0.5 MG TABLET PO PRN (08:12)
[2018-08-13] MEDS ORDERED: 0.9 % Sodium Chloride 1,000 ML IVC SCH (10:30)
--- NOTE | 2018-08-13 10:30 | Internal Med History&Physical ---
Date of Encounter: 08/13/18 Time of Encounter: 10:29 Internal Medicine - H&P: HPI Chief complaint: Palpitations Admitted From: Home Plans for Post Hospital Care: Home History of present illness: Ms. Ireland is a 77 year old female with PMH paroxysmal A. fib, HTN and CAD presented to [facility] on 08/13/2018 with complaints of palpitations. She was found to be A. fib with RVR and was placed in observation status for further workup and treatment. Information obtained from chart review and patient report. Patient says she has known history of A. fib and she can tell when she goes into it. Said she seen her automobile or truck rental dispatcher back in April and was told to stop her as needed diltiazem. She was advised that she went into A. fib for longer than a half an hour to come to the ER which is what she did. Patient said she felt palpitations around 9 PM yesterday evening and new that she was in A. fib. That was her only symptom. She specifically denied chest pain, no shortness of breath, no lightheadedness or dizziness. Says she feels back to baseline on my exam and would like to go home if possible. Past Med Surg Social Fam HX - Past Medical History Medical history: atrial fibrillation, coronary artery disease, hyperlipidemia, hypertension Additional medical history: Patient says she can't take cholestorol medications. Psychiatric history: anxiety - Past Surgical History Surgical History: appendectomy, coronary bypass (CABG), knee replacement, thyroidectomy Additional surgical history: mitral valve repair-13 years ago, bi-lateral knee replacements - Social History Smoking Status: Never smoker Smokeless Tobacco Status: No Alcohol use: none Drug use: none - Family History Mother Living Status: Hx Family Cardiac Disorders: No Hx Family Respiratory Disorders: No Hx Family Cancer: Yes (BREAST) Hx Family GI Disorders: No Hx Family Endocrine Disorder: No Hx Family Neuromuscular Disorders: No Hx Family Neurologic Disorders: No Hx Family HEENT Disorders: No Hx Family Autoimmune Disorders: No Father Living Status: Hx Family Cardiac Disorders: Yes Hx Family Respiratory Disorders: No Hx Family Cancer: No Hx Family GI Disorders: No Hx Family Endocrine Disorder: No Hx Family Neuromuscular Disorders: No Hx Family Neurologic Disorders: No Hx Family HEENT Disorders: No Hx Family Autoimmune Disorders: No Internal Medicine - H&P: Meds ALPRAZolam [Xanax 0.5 MG Tablet] 0.5 mg PO BID PRN 07/14/15 [History] Lisinopril [Zestril] 20 mg PO QAM 07/14/15 [History] Nitroglycerin [Nitrostat] 0.4 mg SL AD PRN 07/14/15 [History] Pantoprazole Sodium [Protonix] 40 mg PO QAM 07/14/15 [History] Cholecalciferol (D-3) [Vitamin D] 1,000 unit PO DAILY 11/07/16 [History] Carvedilol [Coreg] 3.125 mg PO BIDWM 02/23/18 [History] Rivaroxaban [Xarelto] 20 mg PO QPM #0 02/24/18 [Rx] Cyclobenzaprine [Flexeril] 10 mg PO TID #15 tablet 02/26/18 [Rx] Spironolactone 08/13/18 [History] Allergy/AdvReac Type Severity Reaction Status Date / Time doxycycline AdvReac See Verified 08/13/18 00:22 Comments All Systems PM: A 10-system review of systems was performed and is negative for pertinent findings except as documented above in the HPI. - Constitutional Constitutional: no chills, no fever(s), no night sweats - EENT Eyes: no change in vision, no discharge, no pain, no photophobia Ears: no ear discharge, no ear pain, no tinnitus Nose, mouth and throat: no dysphagia, no nasal discharge, no neck pain, no sore throat - Cardiovascular Cardiovascular ROS IM: no chest pain, no diaphoresis, no dyspnea, no lightheadedness, no palpitations, no syncope - Respiratory Respiratory: no cough, no dyspnea, no wheezing, no excessive phlegm production - Gastrointestinal Gastrointestinal: no abdominal pain, no diarrhea, no hematemesis, no hematochezia, no melena, no nausea, no vomiting - Genitourinary Genitourinary: no change in urinary stream, no dysuria, no flank pain, no hematuria - Musculoskeletal Musculoskeletal ROS IM: no numbness, no tingling - Integumentary Integumentary IM: no rash, no unusual bruising - Neurological Neurological ROS: no confusion, no convulsions, no focal weakness, no numbness, no tingling, no tremor(s) - Hematologic/Lymphatic Hematologic/Lymphatic: no easy bruising - Constitutional Vitals: Temp Pulse Resp BP Pulse Ox 97.9 F 58 16 121/68 96 08/13/18 05:36 08/13/18 05:36 08/13/18 05:36 08/13/18 05:36 08/13/18 08:01 General appearance: Present: A&O X 3, pleasant, no acute distress Exam: . - Head Head exam: Present: atraumatic, normocephalic - Eye Eye exam: Present: PERRL, conjuntiva pink, sclera anicteric Pupils: Present: PERRL - Neck Neck exam general surgery: Present: supple, trachea midline. Absent: lymphadenopathy - Respiratory Respiratory exam: Present: CTAB. Absent: accessory muscle use, rales, rhonchi, wheezes - Cardiovascular Cardiovascular exam: Present: irregular rhythm, +S1, +S2. Absent: diastolic murmur, gallop, rubs, systolic murmur Additional comments: Tele: a-fib - GI/Abdominal GI/Abdominal exam: Present: normal bowel sounds, soft, no peritoneal signs. Absent: distended, tenderness - Extremities Exam Extremities exam: Present: warm, radial pulses palpable and symmetrical. Absent: calf tenderness, cyanotic, pedal edema - Neurological Exam Neurological exam: Present: CN II-XII intact, oriented X3, no focal deficits. Absent: pronater drift, facial droop, speech deficit - Skin Skin exam: Present: dry, intact Internal Med - H&P Results - Labs CBC & Chem 7: 08/13/18 00:39 08/13/18 00:39 Labs: Short CBC 08/13/18 Range/Units 00:39 WBC 7.8 (4.3-11.1) K/mcL Hgb 13.0 (11.5-15.4) g/dL Hct 39.3 (35.3-44.9) % Plt Count 264 (140-400) K/mcL Neutrophils # 4.8 (1.6-8.9) K/mcL BMP 08/13/18 00:39 Sodium 136 Potassium 4.2 Chloride 104 Carbon Dioxide 24 BUN 21 Creatinine 1.29 H Glucose 117 H Calcium 9.3 Cardiac Enzymes 08/13/18 Range/Units 00:39 Troponin I < 0.03 (< 0.04) ng/mL - Impressions ITS Impressions Chest X-Ray 08/13/18 00:26 IMPRESSION: No evidence of heart failure or any other acute cardiopulmonary abnormality. D/ / Dannie Newby / Dannie Newby Interpreting Provider: Dannie Newby - Assessment and plan (1) Atrial fibrillation with RVR Current Visit: Yes Status: Acute Assessment and plan: has known a-fib with defibrillator/PPM. Follows closely with Cardiology. Symptomatic with palpitations evening prior to arrival. ED EKG showed A. fib with RVR (HR in the 120s). HR controlled with one-time dose IV diltiazem in the ED. Cont home BB, Xarelto. Cardiology consulted (2) TOM (acute kidney injury) Current Visit: Yes Status: Acute Assessment and plan: mild. Cr 1.2; baseline normal. Gentle IV fluids. Hold home ACEI, spironolactone. Monitor repeat renal function (3) CAD (coronary artery disease) Current Visit: No Status: Chronic Assessment and plan: per hx. asymptomatic. Denied chest pain. Troponin negative. Cont home BB, xarelto Qualifiers: Coronary Disease-Associated Artery/Lesion type: [place] artery [place] vs. transplanted heart: [place] heart Associated angina: without angina Qualified Code(s): I25.10 - Atherosclerotic heart disease of [place] coronary artery without angina pectoris (4) History of hypertension Current Visit: No Status: Chronic Assessment and plan: per hx. Holding home MATHEW, spironolactone with TOM. Continue home BB. Monitor BP and titrate PRN - Time Spent With Patient Total time spent is greater than 50% in coordination of care (as documented) at patient's floor/unit and/or counseling patient:
[2018-08-13 11:38] VITALS: BP 126/61
--- NOTE | 2018-08-13 13:19 | Discharge Summary ---
Orders not resulted at time of discharge: Pending orders 08/13/18 08:11 Magnesium Routine 08/14/18 04:00 Basic Metabolic Panel AM 0400 Complete Blood Count [HEME] AM 0400 Date of Encounter: 08/13/18 Time of Encounter: 13:17 - Discharge Diagnosis (1) Atrial fibrillation with RVR Priority: Primary Status: Acute Assessment and Plan: has known a-fib with defibrillator/PPM. Follows closely with Cardiology. Symptomatic with palpitations evening prior to arrival. ED EKG showed A. fib with RVR (HR in the 120s). HR controlled with one-time dose IV diltiazem in the ED. Discussed with Cardiology who will schedule follow-up appt with Dr. Calabrese. Cont home BB, Xarelto. (2) TOM (acute kidney injury) Priority: Primary Status: Acute Assessment and Plan: mild. Cr 1.2; baseline normal. Received IV fluids. Patient reported sprionolactone started at last Cardiology appt. Will hold sprionolactone for n ow. Recommend repeat BMP within one week (3) CAD (coronary artery disease) Priority: Secondary Status: Chronic Assessment and Plan: per hx. 04/2018 TTE with EF 30-35%, asymptomatic. Denied chest pain. Appeared euvolemic. Troponin negative. Cont home cardiac medications. Qualifiers: Coronary Disease-Associated Artery/Lesion type: [place] artery [place] vs. transplanted heart: [place] heart Associated angina: without angina Qualified Code(s): I25.10 - Atherosclerotic heart disease of [place] coronary artery without angina pectoris (4) History of hypertension Priority: Secondary Status: Chronic Assessment and Plan: per hx. Cont home MATHEW, BB. Holding home spironolactone until seen by PCP for repeat labs. Patient has BP monitor at home and she will monitor BP and notify PCP if BP not controlled. Hospital course: Please see assessment and plan for hospital course Discharge discussed with: patient - Time Spent with Patient Total time spent providing and/or coordinating discharge services: - Discharge Medications Allergies/Adverse Reactions: Allergy/AdvReac Type Severity Reaction Status Date / Time doxycycline AdvReac See Verified 08/13/18 00:22 Comments Date of admission: 08/13/18 03:17 Primary care physician: Yovani Ruiz DO Discharging clinician: Rachel Erwin Anticipated date of discharge: 08/13/18 - Constitutional Vitals: Temp Pulse Resp BP Pulse Ox 97.9 F 60 20 126/61 96 08/13/18 11:35 08/13/18 11:35 08/13/18 11:35 08/13/18 11:35 08/13/18 11:35 General appearance: Present: A&O X 3, pleasant, no acute distress Exam: See exam from 08/13/18 progress note - Patient Status Disposition: Home, Self-Care Condition: Good Functional capacity at discharge: independent ambulation Overall status at discharge: patient is back to baseline - Discharge Instructions Instructions: Atrial Fibrillation (DC), Acute Kidney Injury (DC) Follow Up With: Yovani Ruiz DO [Primary Care Provider] - (Please call for follow-up appt within one week for repeat lab work to monitor kidney function) Vigrilio Calabrese DO [Partnered Physician] - (Please call for follow-up appt within one week if you have not heard from office) - Diet and Activity Activity: ambulate only with your walker, increase activity as tolerated Diet: advance to your usual diet
--- NOTE | 2018-08-13 14:12 | Electrocardiograph Report ---
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
[2018-08-13] MEDS ORDERED: *HR* Rivaroxaban 15 MG TABLET PO SCH (17:00)
--- NOTE | 2018-08-14 12:37 | Electrocardiograph Report ---
[address] [place], [place] [address] Test Date: 2018-08-13 Pat Name: Lucero Ireland Department: EXAM6 Room: [facility] Gender: F Hander In: : 1940 Requested By: Gabe Ireland Order Number: [id number] Reading MD: Lyn Carty Measurements Intervals [place] Rate: 60 P: PA: 129 QRS: 131 QRSD: 134 T: 250 QT: 485 QTc: 485 Interpretive Statements Atrial-paced rhythm Left bundle branch block Electronically Signed On 08-14-2018 12:35:50 EST by Lyn Carty
== END 2018-08-13 15:26 | disposition home or self-care (01) ==
LOC: EMEROOARM 00:01 → 2SOUTHHOLD 00:01
PROVIDERS: ADMIT Family Medicine; ATTEND Family Medicine

== ENCOUNTER 2020-02-21 08:26 | Inpatient (IN) ==
[2020-02-21] MEDS ORDERED: Naloxone 0.4 MG/ML INJ IVP PRN (11:39)
[2020-02-21] MEDS ORDERED: DilTIAZem 50 MG/50 ML IV.SOLN IVC SCH (12:00)
[2020-02-21] MEDS ORDERED: *HR* Heparin 5,000 UNIT/ML VIAL IVP PRN ×2 (13:42)
[2020-02-21] MEDS ORDERED: *HR* Heparin 5,000 UNIT/ML VIAL IVP ONE (13:42)
[2020-02-21] MEDS ORDERED: Heparin 25,000UNIT/250ML 1/2NS 25,000 UNIT/250 ML IV.SOLN IVC SCH ×2 (13:45→14:04)
[2020-02-21] MEDS: carvediloL 6.25 MG TABLET PO SCH (16:38)
[2020-02-21] MEDS ORDERED: carvediloL 6.25 MG TABLET PO SCH (17:00)
[2020-02-21] MEDS ORDERED: *HR* Rivaroxaban 10 MG TABLET PO SCH (17:00)
[2020-02-21] MEDS: ALPRAZolam 0.25 MG TABLET PO PRN (21:08)
[2020-02-22 06:05] LABS: Basophils # 0.1 K/mcL (0.0-0.2); Basophils % 1.2 %; Eosinophils # 0.1 K/mcL (0.0-0.6); Eosinophils % 3.1 %; Hematocrit 38.2 % (35.3-44.9); Hemoglobin 12.1 g/dL (11.5-15.4); Immature Granulocytes % 0.2 % (0-4); Lymphocytes # 1.9 K/mcL (0.6-4.6); Lymphocytes % 45.5 %; Mean Corpuscular HGB Conc 31.7 g/dL (31.6-35.5); Mean Corpuscular Hemoglobin 28.8 pg (28.0-33.3); Mean Platelet Volume 8.6 fL (9.4-12.4); Monocytes # 0.4 K/mcL (0.0-1.3); Monocytes % 8.5 %; Neutrophils # 1.8 K/mcL (1.6-8.9); Platelet Count 219 K/mcL (140-400); Red Cell Distribution Width 14.1 % (11.5-14.5); Segmented Neutrophils % 41.5 %; White Blood Count 4.2 K/mcL (4.3-11.1)
[2020-02-22 06:26] LABS: BUN/Creatinine Ratio 13 (6-26); Blood Urea Nitrogen 10 mg/dL (8-23); Carbon Dioxide 26 mEq/L (23-29); Chloride 107 mEq/L (98-107); Glucose 98 mg/dL (70-105); Magnesium 2.1 mg/dL (1.6-2.6); Osmolality,Calculated 287 (280-300); Phosphorous 3.3 mg/dL (2.7-4.5); Potassium 4.1 mEq/L (3.5-5.1); Sodium 139 mEq/L (136-145); eGFR For African Americans > 60 (> 60); eGFR For Non-African Americans > 60 (> 60)
[2020-02-22] MEDS: carvediloL 6.25 MG TABLET PO SCH (07:53)
[2020-02-22] MEDS: ALPRAZolam 0.25 MG TABLET PO PRN (07:53)
[2020-02-22] MEDS ORDERED: Perflutren Lipid Microsphere 1.3 ML in 0.9 % Sodium Chloride 8.7 ML IVP PRN (08:32)
[2020-02-22] MEDS ORDERED: Cholecalciferol (D-3) 1,000 UNIT (25MCG) TABLET PO SCH (09:00)
[2020-02-22] MEDS ORDERED: lisinopriL 20 MG TABLET PO SCH (09:00)
[2020-02-22 15:13] VITALS: BP 131/76
[2020-02-22] MEDS ORDERED: *HR* Rivaroxaban 10 MG TABLET PO SCH (17:00)
== END 2020-02-22 15:55 | disposition home or self-care (01) | DRG 310 ==
LOC: 2ANU
PROVIDERS: ADMIT Student in an Organized Health Care Education/Training Program; ATTEND Student in an Organized Health Care Education/Training Program

== ENCOUNTER 2020-05-09 21:04 | Inpatient (IN) ==
[2020-05-10] MEDS ORDERED: Ondansetron 4 MG/2 ML VIAL IVP PRN (04:19)
[2020-05-10] MEDS ORDERED: Naloxone 0.4 MG/ML INJ IVP PRN (04:19)
[2020-05-10] MEDS ORDERED: 0.9 % Sodium Chloride 1,000 ML IVC SCH (04:30)
[2020-05-10 07:23] LABS: Basophils % 0.3 %; Hematocrit 37.5 % (35.3-44.9); Hemoglobin 12.2 g/dL (11.5-15.4); Immature Granulocytes % 0.3 % (0-4); Lymphocytes # 0.6 K/mcL (0.6-4.6); Lymphocytes % 20.9 %; Mean Corpuscular HGB Conc 32.5 g/dL (31.6-35.5); Mean Corpuscular Hemoglobin 29.1 pg (28.0-33.3); Mean Corpuscular Volume 89.5 fL (83.0-100.0); Mean Platelet Volume 9.4 fL (9.4-12.4); Monocytes # 0.1 K/mcL (0.0-1.3); Monocytes % 4.6 %; Neutrophils # 2.3 K/mcL (1.6-8.9); Platelet Count 157 K/mcL (140-400); Red Blood Count 4.19 M/mcL (3.82-4.97); Segmented Neutrophils % 73.9 %; White Blood Count 3.1 K/mcL (4.3-11.1)
[2020-05-10 07:30] LABS: INR 1.2; Prothrombin Time 13.6 Seconds (9.4-12.1)
[2020-05-10 07:33] LABS: Activated Partial Thrombo Time 30.1 Seconds (26.0-36.0)
[2020-05-10 07:44] LABS: Alanine Aminotransferase 8 Units/L (7-52); Albumin 3.3 g/dL (3.5-5.7); Albumin/Globulin Ratio 1.3 (1.1-2.2); Alkaline Phosphatase 46 Units/L (34-104); Aspartate Amino Transferase 16 Units/L (13-39); BUN/Creatinine Ratio 21 (6-26); Bilirubin,Total 0.4 mg/dL (0.3-1.0); Blood Urea Nitrogen 16 mg/dL (8-23); Calcium 8.4 mg/dL (8.6-10.3); Carbon Dioxide 24 mEq/L (23-29); Chloride 100 mEq/L (98-107); Globulin 2.5 g/dL (2.4-3.5); Glucose 98 mg/dL (70-105); Lactate Dehydrogenase 223 Units/L (140-271); Osmolality,Calculated 275 (280-300); Potassium 3.8 mEq/L (3.5-5.1); Sodium 132 mEq/L (136-145); Total Protein 5.8 g/dL (6.4-8.9); eGFR For African Americans > 60 (> 60); eGFR For Non-African Americans > 60 (> 60)
[2020-05-10 08:00] LABS: Ferritin 314 ng/mL (10-120)
[2020-05-10 08:43] LABS: C-Reactive Protein 72 mg/L (Less than 10)
[2020-05-10] MEDS ORDERED: Azithromycin 500 MG in 0.9 % Sodium Chloride 250 ML IVPB SCH (09:00)
[2020-05-10] MEDS ORDERED: cefTRIAXone 2,000 MG in Water for inj. (sterile) 20 ML IVP SCH (09:00)
[2020-05-10] MEDS: Dexamethasone 4 MG/ML VIAL IVP SCH (09:09)
[2020-05-10] MEDS ORDERED: ALPRAZolam 0.25 MG TABLET PO PRN (12:44)
[2020-05-10] MEDS: Furosemide 20 MG/2 ML VIAL IVP SCH ×2 (15:53→21:33)
[2020-05-10] MEDS: carvediloL 25 MG TABLET PO SCH ×2 (15:53→16:00)
[2020-05-10] MEDS: ALPRAZolam 0.5 MG TABLET PO PRN (18:45)
[2020-05-10] MEDS: *HR* Rivaroxaban 10 MG TABLET PO SCH (21:33)
[2020-05-11] MEDS: lisinopriL 10 MG TABLET PO SCH (08:42)
[2020-05-11] MEDS: carvediloL 25 MG TABLET PO SCH (08:42)
[2020-05-11] MEDS: Aspirin Enteric Coated 81 MG Tablet PO SCH (08:42)
[2020-05-11] MEDS: Furosemide 20 MG/2 ML VIAL IVP SCH ×2 (08:43→20:54)
[2020-05-11] MEDS: Dexamethasone 4 MG/ML VIAL IVP SCH (08:43)
[2020-05-11 09:55] LABS: Hematocrit 43.1 % (35.3-44.9); Hemoglobin 13.9 g/dL (11.5-15.4); Mean Corpuscular HGB Conc 32.3 g/dL (31.6-35.5); Mean Corpuscular Hemoglobin 28.5 pg (28.0-33.3); Mean Corpuscular Volume 88.5 fL (83.0-100.0); Mean Platelet Volume 9.6 fL (9.4-12.4); Platelet Count 205 K/mcL (140-400); Red Blood Count 4.87 M/mcL (3.82-4.97); Red Cell Distribution Width 13.7 % (11.5-14.5); White Blood Count 4.6 K/mcL (4.3-11.1)
[2020-05-11 10:07] LABS: BUN/Creatinine Ratio 32 (6-26); Blood Urea Nitrogen 24 mg/dL (8-23); Calcium 9.1 mg/dL (8.6-10.3); Carbon Dioxide 23 mEq/L (23-29); Chloride 99 mEq/L (98-107); Glucose 139 mg/dL (70-105); Osmolality,Calculated 284 (280-300); Potassium 3.4 mEq/L (3.5-5.1); Sodium 134 mEq/L (136-145); eGFR For African Americans > 60 (> 60); eGFR For Non-African Americans > 60 (> 60)
[2020-05-11] MEDS: ALPRAZolam 0.5 MG TABLET PO PRN ×2 (11:35→21:01)
[2020-05-11] MEDS: carvediloL 6.25 MG TABLET PO SCH (17:19)
[2020-05-11] MEDS: *HR* Rivaroxaban 10 MG TABLET PO SCH (17:22)
[2020-05-12 06:03] LABS: Hematocrit 42.8 % (35.3-44.9); Hemoglobin 14.1 g/dL (11.5-15.4); Immature Granulocytes % 0.4 % (0-4); Lymphocytes # 0.5 K/mcL (0.6-4.6); Lymphocytes % 9.5 %; Mean Corpuscular HGB Conc 32.9 g/dL (31.6-35.5); Mean Corpuscular Hemoglobin 29.6 pg (28.0-33.3); Mean Corpuscular Volume 89.9 fL (83.0-100.0); Mean Platelet Volume 9.4 fL (9.4-12.4); Monocytes # 0.2 K/mcL (0.0-1.3); Monocytes % 4.5 %; Neutrophils # 4.6 K/mcL (1.6-8.9); Platelet Count 229 K/mcL (140-400); Red Blood Count 4.76 M/mcL (3.82-4.97); Red Cell Distribution Width 13.7 % (11.5-14.5); Segmented Neutrophils % 85.6 %; White Blood Count 5.4 K/mcL (4.3-11.1)
[2020-05-12 06:23] LABS: BUN/Creatinine Ratio 36 (6-26); Blood Urea Nitrogen 31 mg/dL (8-23); Calcium 9.2 mg/dL (8.6-10.3); Carbon Dioxide 27 mEq/L (23-29); Chloride 98 mEq/L (98-107); Glucose 92 mg/dL (70-105); Osmolality,Calculated 286 (280-300); Potassium 3.8 mEq/L (3.5-5.1); Sodium 135 mEq/L (136-145); eGFR For African Americans > 60 (> 60); eGFR For Non-African Americans > 60 (> 60)
[2020-05-12] MEDS: lisinopriL 10 MG TABLET PO SCH (08:45)
[2020-05-12] MEDS: Dexamethasone 4 MG/ML VIAL IVP SCH (08:45)
[2020-05-12] MEDS: Aspirin Enteric Coated 81 MG Tablet PO SCH (08:45)
[2020-05-12] MEDS: Furosemide 20 MG/2 ML VIAL IVP SCH ×2 (08:45→20:51)
[2020-05-12] MEDS: carvediloL 6.25 MG TABLET PO SCH ×2 (08:46→16:18)
[2020-05-12] MEDS: *HR* Rivaroxaban 10 MG TABLET PO SCH (16:19)
[2020-05-12] MEDS: ALPRAZolam 0.5 MG TABLET PO PRN (17:16)
[2020-05-12 19:51] LABS: CK-MB (CK isoenzymes) 0 % (0-4); CK-MM (CK-isoenzymes) 100 % (96-100)
[2020-05-13 03:12] LABS: Potassium 3.9 mEq/L (3.5-5.1)
[2020-05-13 08:30] LABS: CK Total (Ck Isoenzymes) 65 U/L (20-180); CK-BB (CK isoenzymes) 0 % (0-0)
[2020-05-13] MEDS ORDERED: Acetaminophen 325 MG TABLET PO PRN (09:21)
[2020-05-13] MEDS: lisinopriL 10 MG TABLET PO SCH (09:21)
[2020-05-13] MEDS: Aspirin Enteric Coated 81 MG Tablet PO SCH (09:21)
[2020-05-13] MEDS: carvediloL 6.25 MG TABLET PO SCH (09:22)
[2020-05-13] MEDS: Dexamethasone 4 MG/ML VIAL IVP SCH (09:22)
[2020-05-13 12:27] VITALS: BP 91/59
[2020-05-13] MEDS ORDERED: *HR* Rivaroxaban 15 MG TABLET PO SCH (17:00)
== END 2020-05-13 16:36 | disposition home health service (06) | DRG 177 ==
LOC: CDU → SUATTDRO 05-10 12:55 → 2NENU 05-11 18:56
PROVIDERS: ADMIT Internal Medicine; ATTEND Student in an Organized Health Care Education/Training Program

== ENCOUNTER 2020-08-02 17:12 | Inpatient (IN) ==
[2020-08-02 18:02] LABS: Basophils # 0.1 K/mcL (0.0-0.2); Basophils % 0.8 %; Eosinophils # 0.1 K/mcL (0.0-0.6); Eosinophils % 1.8 %; Hematocrit 35.9 % (35.3-44.9); Hemoglobin 11.2 g/dL (11.5-15.4); Immature Granulocytes % 0.3 % (0-4); Lymphocytes % 32.1 %; Mean Corpuscular HGB Conc 31.2 g/dL (31.6-35.5); Mean Corpuscular Hemoglobin 29.2 pg (28.0-33.3); Mean Corpuscular Volume 93.5 fL (83.0-100.0); Mean Platelet Volume 8.8 fL (9.4-12.4); Monocytes # 0.5 K/mcL (0.0-1.3); Monocytes % 7.3 %; Neutrophils # 3.6 K/mcL (1.6-8.9); Platelet Count 269 K/mcL (140-400); Red Blood Count 3.84 M/mcL (3.82-4.97); Red Cell Distribution Width 14.9 % (11.5-14.5); Segmented Neutrophils % 57.7 %; White Blood Count 6.2 K/mcL (4.3-11.1)
[2020-08-02 18:04] LABS: INR 1.1; Prothrombin Time 12.5 Seconds (9.4-12.1)
[2020-08-02] MEDS ORDERED: *HR* Metoprolol 5 MG/5 ML VIAL IVP ONE (18:06)
[2020-08-02 18:07] LABS: Activated Partial Thrombo Time 30.8 Seconds (26.0-36.0)
[2020-08-02 18:19] LABS: Alanine Aminotransferase 45 Units/L (7-52); Albumin/Globulin Ratio 1.7 (1.1-2.2); Alkaline Phosphatase 108 Units/L (34-104); Aspartate Amino Transferase 80 Units/L (13-39); BUN/Creatinine Ratio 19 (6-26); Bilirubin,Total 0.2 mg/dL (0.3-1.0); Blood Urea Nitrogen 16 mg/dL (8-23); Calcium 9.4 mg/dL (8.6-10.3); Carbon Dioxide 22 mEq/L (23-29); Chloride 107 mEq/L (98-107); Globulin 2.4 g/dL (2.4-3.5); Glucose 134 mg/dL (70-105); Osmolality,Calculated 289 (280-300); Potassium 3.8 mEq/L (3.5-5.1); Sodium 138 mEq/L (136-145); Total Protein 6.4 g/dL (6.4-8.9); eGFR For African Americans > 60 (> 60); eGFR For Non-African Americans > 60 (> 60)
[2020-08-02 20:20] LABS: Troponin I < 0.03 ng/mL (< 0.04)
[2020-08-02] MEDS ORDERED: Naloxone 0.4 MG/ML INJ IVP PRN (21:50)
[2020-08-02] MEDS ORDERED: Acetaminophen 325 MG TABLET PO PRN (21:50)
[2020-08-03 02:20] LABS: Hemoglobin 11.1 g/dL (11.5-15.4); Mean Corpuscular HGB Conc 30.8 g/dL (31.6-35.5); Mean Corpuscular Hemoglobin 28.8 pg (28.0-33.3); Mean Corpuscular Volume 93.5 fL (83.0-100.0); Mean Platelet Volume 8.9 fL (9.4-12.4); Platelet Count 256 K/mcL (140-400); Red Blood Count 3.85 M/mcL (3.82-4.97); Red Cell Distribution Width 14.9 % (11.5-14.5)
[2020-08-03 02:37] LABS: BUN/Creatinine Ratio 19 (6-26); Blood Urea Nitrogen 14 mg/dL (8-23); Calcium 9.2 mg/dL (8.6-10.3); Carbon Dioxide 24 mEq/L (23-29); Chloride 108 mEq/L (98-107); Chol/HDL Ratio 4.4 (0-4.9); Cholesterol 239 mg/dL (< 200); Glucose 90 mg/dL (70-105); HDL Cholesterol 54 mg/dL (40-59); LDL Cholesterol,Calculated 165 mg/dL (< 100); Osmolality,Calculated 290 (280-300); Potassium 3.9 mEq/L (3.5-5.1); Sodium 140 mEq/L (136-145); Triglycerides 99 mg/dL (< 150); eGFR For African Americans > 60 (> 60); eGFR For Non-African Americans > 60 (> 60)
[2020-08-03] MEDS: Aspirin Enteric Coated 81 MG Tablet PO SCH (07:54)
[2020-08-03] MEDS: Cholecalciferol (D-3) 1,000 UNIT (25MCG) TABLET PO SCH (07:54)
[2020-08-03] MEDS ORDERED: carvediloL 6.25 MG TABLET PO SCH (08:00)
[2020-08-03 08:07] LABS: Adenovirus Not Detected (Not Detect); Bordetella Pertussis Not Detected (Not Detect); Chlamydophila pneumoniae Not Detected (Not Detect); Coronavirus 229E Not Detected (Not Detect); Coronavirus HKU1 Not Detected (Not Detect); Coronavirus NL63 Not Detected (Not Detect); Coronavirus OC43 Not Detected (Not Detect); Human Metapneumovirus Not Detected (Not Detect); Human Rhinovirus/Enterovirus Not Detected (Not Detect); Influenza A Subtype 2009 H1 Not Detected (Not Detect); Influenza B Not Detected (Not Detect); Mycoplasma pneumoniae Not Detected (Not Detect); Parainfluenza Virus 1 Not Detected (Not Detect); Parainfluenza Virus 2 Not Detected (Not Detect); Parainfluenza Virus 3 Not Detected (Not Detect); Parainfluenza Virus 4 Not Detected (Not Detect); Respiratory Syncytial Virus Not Detected (Not Detect)
[2020-08-03 10:18] LABS: Estimated Average Glucose 114 mg/dl; Hemoglobin A1C 5.6 %
[2020-08-03] MEDS ORDERED: Furosemide 20 MG/2 ML VIAL IVP ONE (12:07)
[2020-08-03] MEDS ORDERED: Perflutren Lipid Microsphere 1.3 ML in 0.9 % Sodium Chloride 8.7 ML IVP PRN (12:09)
[2020-08-03] MEDS ORDERED: lisinopriL 5 MG TABLET PO SCH (12:15)
[2020-08-03] MEDS: *HR* Rivaroxaban 10 MG TABLET PO SCH (16:29)
[2020-08-03] MEDS: carvediloL 6.25 MG TABLET PO SCH (16:29)
[2020-08-03] MEDS ORDERED: ALPRAZolam 0.5 MG TABLET PO PRN (18:31)
[2020-08-03] MEDS: ALPRAZolam 0.5 MG TABLET PO SCH (19:47)
[2020-08-04] MEDS ORDERED: Furosemide 20 MG TABLET PO PRN (07:04)
[2020-08-04] MEDS: Aspirin Enteric Coated 81 MG Tablet PO SCH (07:56)
[2020-08-04] MEDS: lisinopriL 5 MG TABLET PO SCH (07:56)
[2020-08-04] MEDS: Cholecalciferol (D-3) 1,000 UNIT (25MCG) TABLET PO SCH (07:59)
[2020-08-04] MEDS: carvediloL 6.25 MG TABLET PO SCH ×2 (08:00→17:40)
[2020-08-04] MEDS ORDERED: Furosemide 40 MG/4 ML VIAL IVP ONE (13:50)
[2020-08-04] MEDS: *HR* Rivaroxaban 10 MG TABLET PO SCH (17:40)
[2020-08-04] MEDS: ALPRAZolam 0.5 MG TABLET PO SCH (21:11)
[2020-08-05] MEDS ORDERED: Sennosides/Docusate Sodium TABLET PO PRN (04:43)
[2020-08-05 06:07] LABS: Hematocrit 40.3 % (35.3-44.9); Hemoglobin 12.6 g/dL (11.5-15.4); Mean Corpuscular HGB Conc 31.3 g/dL (31.6-35.5); Mean Corpuscular Hemoglobin 28.5 pg (28.0-33.3); Mean Corpuscular Volume 91.2 fL (83.0-100.0); Mean Platelet Volume 8.9 fL (9.4-12.4); Platelet Count 275 K/mcL (140-400); Red Blood Count 4.42 M/mcL (3.82-4.97); Red Cell Distribution Width 14.6 % (11.5-14.5); White Blood Count 5.6 K/mcL (4.3-11.1)
[2020-08-05 06:23] LABS: BUN/Creatinine Ratio 22 (6-26); Blood Urea Nitrogen 19 mg/dL (8-23); Calcium 9.6 mg/dL (8.6-10.3); Carbon Dioxide 25 mEq/L (23-29); Chloride 100 mEq/L (98-107); Glucose 92 mg/dL (70-105); Magnesium 2.1 mg/dL (1.6-2.6); Osmolality,Calculated 284 (280-300); Potassium 3.6 mEq/L (3.5-5.1); Sodium 136 mEq/L (136-145); eGFR For African Americans > 60 (> 60); eGFR For Non-African Americans > 60 (> 60)
[2020-08-05 07:09] VITALS: BP 117/68
[2020-08-05 07:13] LABS: Bilirubin,Urine Negative (Negative); Blood,Urine Negative (Negative); Clarity,Urine Clear (Clear); Color,Urine Yellow (Yellow); Glucose,Urine (UA) Normal (Normal); Hyaline Casts,Urine Few per lpf (None Seen); Ketones,Urine Negative (Negative); Leukocyte Esterase,Urine Trace (Negative); Mucus,Urine Few per lpf (None-Few); Nitrite,Urine Negative (Negative); PH,Urine 5.5 pH Units (5.0-8.0); Protein,Urine Trace mg/dL (Neg-Trace); RBC,Urine 0-3 per hpf (0-3); Specific Gravity,Urine 1.023 (1.010-1.025); Squamous Epithelial Cell,Urine Few per hpf (None-Few); Urobilinogen,Urine Normal (Normal)
[2020-08-05] MEDS: lisinopriL 5 MG TABLET PO SCH (08:22)
[2020-08-05] MEDS: carvediloL 6.25 MG TABLET PO SCH (08:23)
[2020-08-05] MEDS: Aspirin Enteric Coated 81 MG Tablet PO SCH (08:23)
[2020-08-05] MEDS: Cholecalciferol (D-3) 1,000 UNIT (25MCG) TABLET PO SCH (08:23)
== END 2020-08-05 12:04 | disposition home health service (06) | DRG 308 ==
LOC: EMEROOARM 17:12 → 3BNU 17:12 → SUATTDRO 21:01 → 3BNU 22:02 → SUATTDRO 08-03 13:41
PROVIDERS: ADMIT Student in an Organized Health Care Education/Training Program; ATTEND Internal Medicine

== ENCOUNTER 2020-08-10 01:15 | Observation (INO) ==
[2020-08-10] MEDS ORDERED: Ondansetron ODT 4 MG TAB.RAPDIS SL PRN (01:49)
[2020-08-10 02:44] LABS: Hematocrit 39.2 % (35.3-44.9); Hemoglobin 12.4 g/dL (11.5-15.4); Mean Corpuscular HGB Conc 31.6 g/dL (31.6-35.5); Mean Corpuscular Hemoglobin 29.3 pg (28.0-33.3); Mean Corpuscular Volume 92.7 fL (83.0-100.0); Mean Platelet Volume 8.8 fL (9.4-12.4); Platelet Count 230 K/mcL (140-400); Red Blood Count 4.23 M/mcL (3.82-4.97); Red Cell Distribution Width 14.6 % (11.5-14.5); White Blood Count 4.7 K/mcL (4.3-11.1)
[2020-08-10 03:04] LABS: BUN/Creatinine Ratio 21 (6-26); Blood Urea Nitrogen 19 mg/dL (8-23); Calcium 9.5 mg/dL (8.6-10.3); Carbon Dioxide 24 mEq/L (23-29); Chloride 105 mEq/L (98-107); Glucose 101 mg/dL (70-105); Osmolality,Calculated 286 (280-300); Potassium 3.7 mEq/L (3.5-5.1); Sodium 137 mEq/L (136-145); eGFR For African Americans > 60 (> 60); eGFR For Non-African Americans 59 (> 60)
[2020-08-10 03:13] LABS: Hemoglobin 11.6 g/dL (11.5-15.4); Mean Corpuscular HGB Conc 32.2 g/dL (31.6-35.5); Mean Corpuscular Hemoglobin 29.5 pg (28.0-33.3); Mean Corpuscular Volume 91.6 fL (83.0-100.0); Mean Platelet Volume 8.7 fL (9.4-12.4); Platelet Count 208 K/mcL (140-400); Red Blood Count 3.93 M/mcL (3.82-4.97); Red Cell Distribution Width 14.6 % (11.5-14.5); White Blood Count 4.3 K/mcL (4.3-11.1)
[2020-08-10 03:20] LABS: Prothrombin Time 22.8 Seconds (9.4-12.1)
[2020-08-10 03:22] LABS: Activated Partial Thrombo Time 36.9 Seconds (26.0-36.0)
[2020-08-10 03:31] LABS: Heparin anti-factor XA UFH > 2.00 IU/mL (0.30-0.70)
[2020-08-10] MEDS ORDERED: carvediloL 6.25 MG TABLET PO SCH (08:00)
[2020-08-10] MEDS ORDERED: Aspirin 81 MG TAB.CHEW PO SCH (09:00)
[2020-08-10] MEDS ORDERED: lisinopriL 10 MG TABLET PO SCH (09:00)
[2020-08-10] MEDS ORDERED: Furosemide 20 MG TABLET PO SCH (09:00)
[2020-08-10 12:43] VITALS: BP 134/81
[2020-08-10] MEDS ORDERED: *HR* Heparin 5,000 UNIT/ML VIAL IVP PRN ×2 (17:00)
[2020-08-10] MEDS ORDERED: *HR* Heparin 5,000 UNIT/ML VIAL IVP ONE (17:00)
[2020-08-10] MEDS ORDERED: Heparin 25,000UNIT/250ML 1/2NS 25,000 UNIT/250 ML IV.SOLN IVC SCH ×2 (17:00)
== END 2020-08-10 15:07 | disposition home or self-care (01) ==
LOC: 3BNU → SUATTDRO 01:15
PROVIDERS: ADMIT Family Medicine; ATTEND Registered Nurse

== ENCOUNTER 2021-10-04 05:23 | Observation (INO) ==
[2021-10-04] MEDS ORDERED: Melatonin 3 MG TABLET PO PRN (09:43)
[2021-10-04] MEDS ORDERED: Naloxone 0.4 MG/ML INJ IVP PRN (09:43)
[2021-10-04 11:47] VITALS: PULSE 60
[2021-10-04] MEDS: ALPRAZolam 0.5 MG TABLET PO PRN (12:26)
[2021-10-04] MEDS ORDERED: *HR* Rivaroxaban 10 MG TABLET PO SCH (17:00)
[2021-10-04] MEDS ORDERED: carvediloL 6.25 MG TABLET PO SCH (17:00)
[2021-10-04] MEDS ORDERED: ALPRAZolam 0.5 MG TABLET PO SCH (21:00)
[2021-10-05 01:24] LABS: Hematocrit 28.4 % (35.3-44.9); Hemoglobin 9.1 g/dL (11.5-15.4); Mean Corpuscular Hemoglobin 29.7 pg (28.0-33.3); Mean Corpuscular Volume 92.8 fL (83.0-100.0); Mean Platelet Volume 8.8 fL (9.4-12.4); Platelet Count 241 K/mcL (140-400); Red Blood Count 3.06 M/mcL (3.82-4.97); Red Cell Distribution Width 13.7 % (11.5-14.5); White Blood Count 5.4 K/mcL (4.3-11.1)
[2021-10-05 01:39] LABS: Iron 23 mcg/dL (50-170)
[2021-10-05 01:41] LABS: BUN/Creatinine Ratio 20 (6-26); Blood Urea Nitrogen 17 mg/dL (8-23); Calcium 8.9 mg/dL (8.6-10.3); Carbon Dioxide 24 mEq/L (23-29); Chloride 108 mEq/L (98-107); Glucose 92 mg/dL (70-105); Osmolality,Calculated 289 (280-300); Phosphorous 3.7 mg/dL (2.7-4.5); Potassium 3.9 mEq/L (3.5-5.1); Sodium 139 mEq/L (136-145); eGFR For African Americans > 60 (> 60); eGFR For Non-African Americans > 60 (> 60)
[2021-10-05 04:22] LABS: % Iron Saturation 7 % (15-50); Transferrin 234 mg/dL (203-362)
[2021-10-05 06:42] VITALS: O2SAT 95
[2021-10-05] MEDS ORDERED: Iron Sucrose Complex 200 MG in 0.9 % Sodium Chloride 100 ML IVPB ONE (07:58)
[2021-10-05] MEDS ORDERED: Aspirin 81 MG TAB.CHEW PO SCH (09:00)
[2021-10-05] MEDS ORDERED: Furosemide 20 MG TABLET PO SCH (09:00)
[2021-10-05] MEDS ORDERED: lisinopriL 5 MG TABLET PO SCH (09:00)
[2021-10-05 10:36] VITALS: TEMP 98.3
[2021-10-05] MEDS: ALPRAZolam 0.5 MG TABLET PO PRN (10:57)
[2021-10-05 14:03] VITALS: BP 134/70
[2021-10-05 14:03] LABS: Hematocrit 32.6 % (35.3-44.9); Hemoglobin 10.1 g/dL (11.5-15.4)
[2021-10-05] MEDS ORDERED: carvediloL 6.25 MG TABLET PO SCH (17:00)
== END 2021-10-05 17:05 | disposition home or self-care (01) ==
LOC: 3NENU → SUATTDRO 09:36
PROVIDERS: ADMIT Internal Medicine; ATTEND Internal Medicine

== ENCOUNTER 2022-04-14 18:35 | Inpatient (IN) ==
[2022-04-14 20:57] LABS: Basophils # 0.1 K/mcL (0.0-0.2); Basophils % 1.6 %; Eosinophils # 0.1 K/mcL (0.0-0.6); Eosinophils % 2.1 %; Hematocrit 33.7 % (35.3-44.9); Hemoglobin 10.7 g/dL (11.5-15.4); Immature Granulocytes % 0.2 % (0-4); Lymphocytes # 2.4 K/mcL (0.6-4.6); Lymphocytes % 42.9 %; Mean Corpuscular HGB Conc 31.8 g/dL (31.6-35.5); Mean Corpuscular Hemoglobin 29.9 pg (28.0-33.3); Mean Corpuscular Volume 94.1 fL (83.0-100.0); Mean Platelet Volume 8.7 fL (9.4-12.4); Monocytes # 0.5 K/mcL (0.0-1.3); Monocytes % 8.7 %; Neutrophils # 2.5 K/mcL (1.6-8.9); Platelet Count 326 K/mcL (140-400); Red Blood Count 3.58 M/mcL (3.82-4.97); Red Cell Distribution Width 13.2 % (11.5-14.5); Segmented Neutrophils % 44.5 %; White Blood Count 5.6 K/mcL (4.3-11.1)
[2022-04-14 21:07] LABS: Prothrombin Time 22.6 Seconds (9.4-12.1)
[2022-04-14 21:10] LABS: Activated Partial Thrombo Time 43.9 Seconds (26.0-36.0)
[2022-04-14 21:29] LABS: BUN/Creatinine Ratio 11 (6-26); Blood Urea Nitrogen 11 mg/dL (8-23); Calcium 9.3 mg/dL (8.6-10.3); Carbon Dioxide 25 mEq/L (23-29); Chloride 103 mEq/L (98-107); Glucose 92 mg/dL (70-105); Osmolality,Calculated 277 (280-300); Potassium 4.1 mEq/L (3.5-5.1); Sodium 134 mEq/L (136-145); Troponin I < 0.03 ng/mL (< 0.04)
[2022-04-15] MEDS ORDERED: Naloxone 0.4 MG/ML INJ IVP PRN (00:44)
[2022-04-15] MEDS ORDERED: Ondansetron ODT 4 MG TAB.RAPDIS SL PRN (00:44)
[2022-04-15 00:48] LABS: Magnesium 1.9 mg/dL (1.6-2.6)
[2022-04-15] MEDS ORDERED: Furosemide 20 MG/2 ML VIAL IVP ONE (03:02)
[2022-04-15 05:48] LABS: Hematocrit 38.6 % (35.3-44.9); Mean Corpuscular HGB Conc 31.9 g/dL (31.6-35.5); Mean Corpuscular Hemoglobin 29.6 pg (28.0-33.3); Mean Corpuscular Volume 92.8 fL (83.0-100.0); Mean Platelet Volume 8.5 fL (9.4-12.4); Platelet Count 289 K/mcL (140-400); Red Blood Count 4.16 M/mcL (3.82-4.97); Red Cell Distribution Width 13.2 % (11.5-14.5); White Blood Count 4.9 K/mcL (4.3-11.1)
[2022-04-15 05:56] LABS: Hemoglobin 12.3 g/dL (11.5-15.4); INR 1.8; Prothrombin Time 19.6 Seconds (9.4-12.1)
[2022-04-15 06:09] LABS: Calcium 9.4 mg/dL (8.6-10.3); Magnesium 2.1 mg/dL (1.6-2.6); Phosphorous 3.4 mg/dL (2.7-4.5); Potassium 3.7 mEq/L (3.5-5.1)
[2022-04-15] MEDS ORDERED: DilTIAZem SR (12hr) 60 MG CAP.ER.12H PO SCH ×2 (09:00→21:00)
[2022-04-15] MEDS: lisinopriL 5 MG TABLET PO SCH (09:41)
[2022-04-15] MEDS: Cholecalciferol (D-3) 1,000 UNIT (25MCG) TABLET PO SCH (09:41)
[2022-04-15] MEDS: Ascorbic Acid 500 MG TABLET PO SCH ×2 (09:42→20:07)
[2022-04-15] MEDS: Aspirin Enteric Coated 81 MG Tablet PO SCH (09:42)
[2022-04-15] MEDS: carvediloL 6.25 MG TABLET PO SCH ×2 (09:42→16:36)
[2022-04-15] MEDS ORDERED: Iopamidol - 370 500 ML MLS IVP ONE ×2 (13:21)
[2022-04-15] MEDS: Furosemide 20 MG/2 ML VIAL IVP SCH ×2 (16:35→20:07)
[2022-04-15] MEDS: *HR* Rivaroxaban 10 MG TABLET PO SCH (16:47)
[2022-04-15] MEDS: ALPRAZolam 0.5 MG TABLET PO SCH (20:07)
[2022-04-15] MEDS: Melatonin 3 MG TABLET PO PRN (20:11)
[2022-04-16 06:33] LABS: Basophils # 0.1 K/mcL (0.0-0.2); Basophils % 1.7 %; Eosinophils # 0.1 K/mcL (0.0-0.6); Eosinophils % 2.3 %; Hematocrit 33.9 % (35.3-44.9); Hemoglobin 11.1 g/dL (11.5-15.4); Immature Granulocytes % 0.4 % (0-4); Lymphocytes # 2.1 K/mcL (0.6-4.6); Lymphocytes % 40.3 %; Mean Corpuscular HGB Conc 32.7 g/dL (31.6-35.5); Mean Corpuscular Hemoglobin 30.4 pg (28.0-33.3); Mean Corpuscular Volume 92.9 fL (83.0-100.0); Mean Platelet Volume 8.5 fL (9.4-12.4); Monocytes # 0.6 K/mcL (0.0-1.3); Monocytes % 11.3 %; Neutrophils # 2.3 K/mcL (1.6-8.9); Platelet Count 311 K/mcL (140-400); Red Blood Count 3.65 M/mcL (3.82-4.97); Red Cell Distribution Width 13.5 % (11.5-14.5); White Blood Count 5.2 K/mcL (4.3-11.1)
[2022-04-16 06:50] LABS: Calcium 9.9 mg/dL (8.6-10.3); Magnesium 2.1 mg/dL (1.6-2.6); Potassium 3.9 mEq/L (3.5-5.1)
[2022-04-16] MEDS: Cholecalciferol (D-3) 1,000 UNIT (25MCG) TABLET PO SCH (09:14)
[2022-04-16] MEDS: Furosemide 20 MG/2 ML VIAL IVP SCH (09:14)
[2022-04-16] MEDS: lisinopriL 5 MG TABLET PO SCH (09:14)
[2022-04-16] MEDS: Ascorbic Acid 500 MG TABLET PO SCH ×2 (09:14→20:26)
[2022-04-16] MEDS: carvediloL 6.25 MG TABLET PO SCH ×2 (09:14→17:02)
[2022-04-16] MEDS: Aspirin Enteric Coated 81 MG Tablet PO SCH (09:14)
[2022-04-16] MEDS: Cyanocobalamin (B-12) 1,000 MCG/ML VIAL SQ SCH (10:44)
[2022-04-16] MEDS: ALPRAZolam 0.25 MG TABLET PO SCH (10:44)
[2022-04-16] MEDS: Spironolactone 25 MG TABLET PO SCH (14:40)
[2022-04-16] MEDS ORDERED: Furosemide 40 MG/4 ML VIAL IVP ONE (15:01)
[2022-04-16] MEDS: *HR* Rivaroxaban 10 MG TABLET PO SCH (17:02)
[2022-04-16] MEDS: Amiodarone Premix 360 MG/200 ML BAG IVC SCH (17:41)
[2022-04-16] MEDS ORDERED: Furosemide 20 MG TABLET PO SCH (18:00)
[2022-04-16] MEDS: Melatonin 3 MG TABLET PO PRN (20:26)
[2022-04-16] MEDS: ALPRAZolam 0.5 MG TABLET PO SCH (20:26)
[2022-04-16] MEDS ORDERED: Amiodarone Premix 360 MG/200 ML BAG IVC SCH (21:00)
[2022-04-17 04:40] LABS: Basophils # 0.1 K/mcL (0.0-0.2); Basophils % 1.5 %; Eosinophils # 0.2 K/mcL (0.0-0.6); Eosinophils % 2.6 %; Hematocrit 33.7 % (35.3-44.9); Immature Granulocytes % 0.2 % (0-4); Lymphocytes # 2.5 K/mcL (0.6-4.6); Lymphocytes % 41.3 %; Mean Corpuscular HGB Conc 32.6 g/dL (31.6-35.5); Mean Corpuscular Volume 91.8 fL (83.0-100.0); Mean Platelet Volume 8.8 fL (9.4-12.4); Monocytes # 0.6 K/mcL (0.0-1.3); Monocytes % 9.7 %; Neutrophils # 2.7 K/mcL (1.6-8.9); Platelet Count 321 K/mcL (140-400); Red Blood Count 3.67 M/mcL (3.82-4.97); Red Cell Distribution Width 13.2 % (11.5-14.5); Segmented Neutrophils % 44.7 %; White Blood Count 6.1 K/mcL (4.3-11.1)
[2022-04-17 05:04] LABS: Calcium 8.9 mg/dL (8.6-10.3); Potassium 3.7 mEq/L (3.5-5.1)
[2022-04-17] MEDS: Amiodarone Premix 360 MG/200 ML BAG IVC SCH ×2 (06:09→17:51)
[2022-04-17] MEDS: Aspirin Enteric Coated 81 MG Tablet PO SCH (07:38)
[2022-04-17] MEDS: lisinopriL 5 MG TABLET PO SCH (07:38)
[2022-04-17] MEDS: Ascorbic Acid 500 MG TABLET PO SCH ×2 (07:38→20:20)
[2022-04-17] MEDS: carvediloL 6.25 MG TABLET PO SCH ×2 (07:38→18:35)
[2022-04-17] MEDS: Cholecalciferol (D-3) 1,000 UNIT (25MCG) TABLET PO SCH (07:39)
[2022-04-17] MEDS: Cyanocobalamin (B-12) 1,000 MCG/ML VIAL SQ SCH (07:39)
[2022-04-17] MEDS: Spironolactone 25 MG TABLET PO SCH (07:39)
[2022-04-17] MEDS ORDERED: 0.9 % Sodium Chloride 500 ML IVC ONE (13:27)
[2022-04-17] MEDS: *HR* FentaNYL (PF) 100 MCG/2 ML VIAL IVP PRN ×2 (13:50→13:53)
[2022-04-17] MEDS: *HR* Midazolam HCl 5 MG/5 ML VIAL IVP PRN ×2 (13:50→13:53)
[2022-04-17] MEDS: ALPRAZolam 0.25 MG TABLET PO SCH (16:02)
[2022-04-17] MEDS: *HR* Rivaroxaban 10 MG TABLET PO SCH (18:35)
[2022-04-17] MEDS: ALPRAZolam 0.5 MG TABLET PO SCH (20:20)
[2022-04-18] MEDS: Amiodarone Premix 360 MG/200 ML BAG IVC SCH (05:31)
[2022-04-18 06:48] LABS: Calcium 9.1 mg/dL (8.6-10.3); Potassium 4.1 mEq/L (3.5-5.1)
[2022-04-18 08:12] VITALS: TEMP 97.9; O2SAT 93
[2022-04-18] MEDS: Cyanocobalamin (B-12) 1,000 MCG/ML VIAL SQ SCH (08:39)
[2022-04-18] MEDS: Aspirin Enteric Coated 81 MG Tablet PO SCH (08:40)
[2022-04-18] MEDS: lisinopriL 5 MG TABLET PO SCH (08:40)
[2022-04-18] MEDS: carvediloL 6.25 MG TABLET PO SCH (08:40)
[2022-04-18] MEDS: Cholecalciferol (D-3) 1,000 UNIT (25MCG) TABLET PO SCH (08:40)
[2022-04-18] MEDS: Ascorbic Acid 500 MG TABLET PO SCH (08:40)
[2022-04-18] MEDS: Spironolactone 25 MG TABLET PO SCH (08:41)
[2022-04-18] MEDS ORDERED: *HR* Amiodarone 200 MG TABLET PO SCH (09:30)
[2022-04-18] MEDS ORDERED: Furosemide 20 MG TABLET PO SCH (10:00)
[2022-04-18 10:49] VITALS: BP 131/58; PULSE 60
[2022-04-18] MEDS: ALPRAZolam 0.25 MG TABLET PO SCH (11:13)
== END 2022-04-18 12:09 | disposition home or self-care (01) | DRG 309 ==
LOC: EMEROOARM 18:35 → 2ANU 18:35 → SUATTDRO 04-15 01:13 → 2ANU 04-15 02:21 → 2NNU 04-16 17:28
PROVIDERS: ADMIT Internal Medicine; ATTEND Pharmacist

== ENCOUNTER 2022-04-30 10:15 | Inpatient (IN) ==
[2022-04-30 10:59] LABS: Basophils # 0.1 K/mcL (0.0-0.2); Eosinophils # 0.1 K/mcL (0.0-0.6); Eosinophils % 1.4 %; Hematocrit 38.3 % (35.3-44.9); Hemoglobin 12.1 g/dL (11.5-15.4); Immature Granulocytes % 0.3 % (0-4); Lymphocytes # 1.6 K/mcL (0.6-4.6); Lymphocytes % 28.1 %; Mean Corpuscular HGB Conc 31.6 g/dL (31.6-35.5); Mean Corpuscular Hemoglobin 29.7 pg (28.0-33.3); Mean Corpuscular Volume 94.1 fL (83.0-100.0); Mean Platelet Volume 8.6 fL (9.4-12.4); Monocytes # 0.4 K/mcL (0.0-1.3); Monocytes % 7.4 %; Neutrophils # 3.6 K/mcL (1.6-8.9); Platelet Count 302 K/mcL (140-400); Red Blood Count 4.07 M/mcL (3.82-4.97); Red Cell Distribution Width 13.3 % (11.5-14.5); Segmented Neutrophils % 61.8 %; White Blood Count 5.8 K/mcL (4.3-11.1)
[2022-04-30 11:21] LABS: BUN/Creatinine Ratio 12 (6-26); Blood Urea Nitrogen 13 mg/dL (8-23); Calcium 9.3 mg/dL (8.6-10.3); Carbon Dioxide 21 mEq/L (23-29); Chloride 102 mEq/L (98-107); Glucose 111 mg/dL (70-105); Osmolality,Calculated 277 (280-300); Potassium 4.5 mEq/L (3.5-5.1); Sodium 133 mEq/L (136-145); Troponin I < 0.03 ng/mL (< 0.04)
[2022-04-30] MEDS ORDERED: 0.9 % Sodium Chloride 500 ML IVC ONE (12:04)
[2022-04-30 12:41] LABS: Basophils # 0.1 K/mcL (0.0-0.2); Eosinophils # 0.1 K/mcL (0.0-0.6); Eosinophils % 1.2 %; Hematocrit 38.2 % (35.3-44.9); Hemoglobin 12.3 g/dL (11.5-15.4); Immature Granulocytes % 0.2 % (0-4); Lymphocytes # 1.7 K/mcL (0.6-4.6); Lymphocytes % 29.7 %; Mean Corpuscular HGB Conc 32.2 g/dL (31.6-35.5); Mean Corpuscular Hemoglobin 30.1 pg (28.0-33.3); Mean Corpuscular Volume 93.4 fL (83.0-100.0); Mean Platelet Volume 8.6 fL (9.4-12.4); Monocytes # 0.4 K/mcL (0.0-1.3); Monocytes % 7.3 %; Neutrophils # 3.5 K/mcL (1.6-8.9); Platelet Count 292 K/mcL (140-400); Red Blood Count 4.09 M/mcL (3.82-4.97); Red Cell Distribution Width 13.4 % (11.5-14.5); Segmented Neutrophils % 60.6 %; White Blood Count 5.8 K/mcL (4.3-11.1)
[2022-04-30 14:42] LABS: Thyroid Stimulating Hormone 3.224 mcIU/mL (0.340-5.600)
[2022-04-30 15:00] LABS: Calcium 9.4 mg/dL (8.6-10.3); Potassium 4.4 mEq/L (3.5-5.1)
[2022-04-30] MEDS ORDERED: Ondansetron 4 MG/2 ML VIAL IVP PRN (16:34)
[2022-04-30] MEDS ORDERED: Acetaminophen 325 MG TABLET PO PRN (16:34)
[2022-04-30] MEDS ORDERED: Naloxone 0.4 MG/ML INJ IVP PRN (16:34)
[2022-04-30] MEDS ORDERED: D5% in Water 1,000 ML IVC PRN (16:38)
[2022-04-30] MEDS ORDERED: Dextrose Gel 15 GM/37.5 ML TUBE PO PRN ×2 (16:38)
[2022-04-30] MEDS ORDERED: *HR* Dextrose 50 % in Water (Syg) 50 ML SYRINGE IVP PRN (16:38)
[2022-04-30] MEDS: *HR* Rivaroxaban 10 MG TABLET PO SCH (18:41)
[2022-04-30] MEDS: Melatonin 3 MG TABLET PO PRN (20:00)
[2022-04-30] MEDS: ALPRAZolam 0.5 MG TABLET PO SCH (20:00)
[2022-05-01 06:03] LABS: Basophils # 0.1 K/mcL (0.0-0.2); Basophils % 1.8 %; Eosinophils # 0.1 K/mcL (0.0-0.6); Eosinophils % 2.2 %; Hemoglobin 11.4 g/dL (11.5-15.4); Immature Granulocytes % 0.2 % (0-4); Lymphocytes # 1.7 K/mcL (0.6-4.6); Lymphocytes % 38.4 %; Mean Corpuscular HGB Conc 31.7 g/dL (31.6-35.5); Mean Corpuscular Hemoglobin 29.5 pg (28.0-33.3); Mean Corpuscular Volume 93.3 fL (83.0-100.0); Mean Platelet Volume 8.8 fL (9.4-12.4); Monocytes # 0.4 K/mcL (0.0-1.3); Monocytes % 8.6 %; Neutrophils # 2.2 K/mcL (1.6-8.9); Platelet Count 278 K/mcL (140-400); Red Blood Count 3.86 M/mcL (3.82-4.97); Red Cell Distribution Width 13.4 % (11.5-14.5); Segmented Neutrophils % 48.8 %; White Blood Count 4.5 K/mcL (4.3-11.1)
[2022-05-01 06:21] LABS: Calcium 9.2 mg/dL (8.6-10.3); Phosphorous 3.3 mg/dL (2.7-4.5); Potassium 4.6 mEq/L (3.5-5.1)
[2022-05-01] MEDS: Furosemide 20 MG TABLET PO SCH (07:50)
[2022-05-01] MEDS: Aspirin Enteric Coated 81 MG Tablet PO SCH (07:50)
[2022-05-01] MEDS: lisinopriL 5 MG TABLET PO SCH (07:50)
[2022-05-01] MEDS ORDERED: Spironolactone 25 MG TABLET PO SCH (09:00)
[2022-05-01] MEDS: ALPRAZolam 0.5 MG TABLET PO SCH ×2 (12:04→20:12)
[2022-05-01] MEDS ORDERED: *HR* Digoxin 0.5 MG/2 ML AMPUL IVP ONE (15:32)
[2022-05-01] MEDS: *HR* Amiodarone 200 MG TABLET PO SCH (16:40)
[2022-05-01] MEDS: *HR* Rivaroxaban 10 MG TABLET PO SCH (17:30)
[2022-05-01] MEDS: Melatonin 3 MG TABLET PO PRN (20:16)
[2022-05-02] MEDS ORDERED: Metoprolol XL (24 HR) Succ 25 MG TAB.ER.24H PO SCH ×2 (09:00)
[2022-05-02] MEDS ORDERED: *HR* Digoxin 0.125 MG TABLET PO SCH (09:00)
[2022-05-02] MEDS ORDERED: Spironolactone 12.5 MG TABLET PO SCH (09:00)
[2022-05-02] MEDS: lisinopriL 5 MG TABLET PO SCH (09:12)
[2022-05-02] MEDS: *HR* Amiodarone 200 MG TABLET PO SCH (09:12)
[2022-05-02] MEDS: Aspirin Enteric Coated 81 MG Tablet PO SCH (09:12)
[2022-05-02] MEDS: Furosemide 20 MG TABLET PO SCH (09:12)
[2022-05-02 11:10] VITALS: BP 104/73; PULSE 109; TEMP 97.4; O2SAT 93
[2022-05-02] MEDS: ALPRAZolam 0.5 MG TABLET PO SCH (12:21)
== END 2022-05-02 16:32 | disposition home or self-care (01) | DRG 309 ==
LOC: 3BNU 10:15 → EMEROOARM 10:15 → SUATTDRO 17:08 → 3BNU 17:46
PROVIDERS: ADMIT Internal Medicine; ATTEND Internal Medicine